=== PATIENT | female | born 1965 ===

== ENCOUNTER 2017-01-19 20:31 | Emergency (ER) | payer MEDICARE, MEDICAID ==
[2017-01-19 20:31] VITALS: BMI 21.7
[2017-01-19 21:37] VITALS: PULSE 74; RESP 16; TEMP 98.8; O2SAT 100
--- NOTE | 2017-01-19 21:45 | ED PDOC ---
Lower Extremity Pain/Injury Time Seen by Provider: 01/19/17 21:37 Chief Complaint (Nursing): Lower Extremity Problem/Injury Chief Complaint (Provider): foot pain(right) History Per: Patient History/Exam Limitations: no limitations Additional Complaint(s): 51yo F with DM in ?ED for eval of ulcer to plantar surface of right foot-pt is getting wound care by MD Esthela and states she was seen today-pt admits to pain in foot, with no drainage, fever , chills erythema to foot. admits to swelling. pt is currently on cipro abx by MD Esthela Past Medical History Reviewed: Historical Data, Nursing Documentation, Vital Signs Vital Signs: Last Vital Signs Temp 98.8 F 01/19/17 21:34 Pulse 74 01/19/17 21:34 Resp 16 01/19/17 21:34 BP 156/72 H 01/19/17 21:34 Pulse Ox 100 01/19/17 21:34 - Medical History PMH: Anemia (Iron deficiency anemia), HTN, Hypercholesterolemia Denies: Chronic Kidney Disease - Surgical History Surgical History: Endoscopy - Family History Family History: States: No Known Family Hx - Home Medications Home Medications: Ambulatory Orders Medication Instructions Recorded Hydrochlorothiazide 25 mg PO DAILY 11/02/14 Clopidogrel [Plavix] 1 tab PO DAILY 07/03/15 GlipiZIDE [Glucotrol] 1 tab PO BID 07/03/15 hydrALAZINE [hydralazine 10 mg PO BID 12/23/16 Hydrochloride] Ibuprofen [Motrin] 400 mg PO Q6 #30 tab 01/20/17 - Allergies Allergies/Adverse Reactions: Allergies Allergy/AdvReac Type Severity Reaction Status Date / Time shellfish derived Allergy Intermediate RASH Verified 01/19/17 21:33 Wells Criteria for PE - Wells Criteria for Pulmonary Embolism Clinical Signs and Symptoms of DVT: No P.E is #1 Diagnosis, or Equally Likely: No Heart Rate >100: No Immobilization at least 3 days;Surgery previous 4 weeks: No Previous, objectively diagnosed PE or DVT: No Hemoptysis: No Malignancy w/treatment within 6 months, or palliative: No Total Score: 0 Review of Systems ROS Statement: Except As Marked, All Systems Reviewed And Found Negative Constitutional: Negative for: Fever, Chills Musculoskeletal: Positive for: Foot Pain Physical Exam - Reviewed Nursing Documentation Reviewed: Yes Vital Signs Reviewed: Yes - Physical Exam Appears: Positive for: Well, Non-toxic, No Acute Distress Head Exam: Positive for: ATRAUMATIC, NORMAL INSPECTION, NORMOCEPHALIC Skin: Positive for: Normal Color, Warm, DRY Cardiovascular/Chest: Positive for: Regular Rate, Rhythm Respiratory: Positive for: CNT, Normal Breath Sounds Extremity: Positive for: Other (right foot: plantar surface-open wound noted to plantar surfae of foot- no draiange. no erythema) Neurologic/Psych: Positive for: Alert, Oriented - Laboratory Results Result Diagrams: 01/19/17 22:28 01/19/17 22:28 - ECG O2 Sat by Pulse Oximetry: 100 - Progress ED Course And Treament: podiatry consulted-will get cbc/cmp/ESR for concerns of osteomyleitits . Medical Decision Making Medical Decision Making: podiatry evaluated pt. pt with normal labs only slightly elevated ESR, however pt will continue to abx at home and motrin for pain. Disposition - Clinical Impression Clinical Impression: Foot ulcer - Patient ED Disposition Is Patient to be Admitted: No Counseled Patient/Family Regarding: Studies Performed, Diagnosis, Need For Followup, Rx Given - Disposition Disposition: Routine/Home Disposition Time: 00:13 Condition: STABLE Prescriptions: Ibuprofen [Motrin] 400 mg PO Q6 #30 tab Instructions: Diabetic Foot Care (ED)
--- NOTE | 2017-01-19 22:35 | CP.PCM.CON ---
History of Present Illness - History of Present Illness History of Present Illness: 51 year old female with PMHx including DM, HTN was seen in the ED for pain in right foot. Patient states that she saw Dr. Proctor today in office and he took off her total contact cast. She had a lot of drainage and she did not get a new TCC applied. She admits she did not have pain when she saw Dr. Proctor, but states she had pain after walking. She denies any treatment for the pain, denies taking any medication for the pain. She is currently on cipro by Dr. Proctor. She denies n/v/f/c/sob/cp. Past Patient History - Past Medical History & Family History Past Medical History?: Yes - Past Social History Smoking Status: Former Smoker - CARDIAC Hx Hypercholesterolemia: Yes Hx Hypertension: Yes - PULMONARY Hx Respiratory Disorders: No - NEUROLOGICAL Hx Neurological Disorder: No - HEENT Hx HEENT Problems: No - RENAL Hx Chronic Kidney Disease: No - ENDOCRINE/METABOLIC Hx Endocrine Disorders: Yes Hx Diabetes Mellitus Type 2: Yes - HEMATOLOGICAL/ONCOLOGICAL Hx Anemia: Yes (Iron deficiency anemia) - INTEGUMENTARY Hx Dermatological Problems: No - MUSCULOSKELETAL/RHEUMATOLOGICAL Hx Musculoskeletal Disorders: No Hx Falls: No - GASTROINTESTINAL Hx Gastrointestinal Disorders: Yes Hx Ulcer: Yes - GENITOURINARY/GYNECOLOGICAL Hx Genitourinary Disorders: Yes Hx Reproductive Disorders: Yes (MENORRHAGIA) - PSYCHIATRIC Hx Psychophysiologic Disorder: No Hx Substance Use: No - SURGICAL HISTORY Hx Surgeries: Yes Hx Section: Yes (X1) Hx Femoral-Popliteal Bypass Graft: Yes Hx Gastric Bypass Surgery: Yes Hx Hysterectomy: Yes - ANESTHESIA Hx Anesthesia: Yes Hx Anesthesia Reactions: No Hx Malignant Hyperthermia: No Meds Home Medications: Home Medication List Medication Instructions Recorded Confirmed Type Ibuprofen [Motrin] 400 mg PO Q6 #30 tab 01/20/17 Rx Allergies/Adverse Reactions: Allergies Allergy/AdvReac Type Severity Reaction Status Date / Time shellfish derived Allergy Intermediate RASH Verified 01/19/17 21:33 Physical Exam - Constitutional Appears: Well, Non-toxic, No Acute Distress - Extremities Exam Additional comments: Right lower extremity focused exam: Vasc: DP and PT pulses palpable 2/4. CFT < 4 seconds to all digits. Skin temperature warm to cool from proximal to distal Neuro:Gross sensation intact Ortho: Pain on palpation to ulceration site on the plantar aspect of right foot Derm: Open ulceration noted to the plantar aspect of the 5th metatarsal on the right foot measure approximately 0.4 cm x 0.4 cm x 0.5 cm, no malodor, no drainage noted, no probe to bone noted. Wound is surrounded by gentinviolet that was applied earlier today. No purulence noted - Neurological Exam Neurological exam: Alert, Oriented x3 - Psychiatric Exam Psychiatric exam: Normal Affect, Normal Mood Results - Vital Signs Recent Vital Signs: Last Vital Signs Temp 98.8 F 01/19/17 21:34 Pulse 74 01/19/17 21:34 Resp 16 01/19/17 21:34 BP 156/72 H 01/19/17 21:34 Pulse Ox 100 01/19/17 22:29 - Labs Result Diagrams: 01/19/17 22:28 01/19/17 22:28 Assessment & Plan - Assessment and Plan (Free Text) Assessment: 51 year old female with right plantar ulceration secondary to diabetes Plan: Patient examined and evaluated Discussed in detail with attending, Dr. Proctor Chart and vitals reviewed;afebrile CBC, ESR, BPM ordered Radiograph ordered Right foot dressed with sterile gauze, dsd Motrin per ED PA Patient to follow up with Dr. Proctor wound care center
[2017-01-19 22:37] LABS: HEMATOCRIT 31.5 % (34.0-47.0); MEAN CELL VOLUME 83.1 fl (81.0-99.0); MEAN CORPUSCULAR HEMOGLOBIN 26.5 pg (27.0-31.0); MEAN CORPUSCULAR HGB CONC 31.9 g/dL (33.0-37.0); MEAN PLATELET VOLUME 10.3 fl (7.2-11.7); RED CELL DISTRIBUTION WIDTH 13.8 % (11.5-14.5); WHITE BLOOD COUNT 6.7 K/uL (4.8-10.8)
[2017-01-19 22:42] LABS: CALCIUM 9.2 mg/dL (8.4-10.2); POTASSIUM 4.5 MMOL/L (3.6-5.0)
[2017-01-20 00:22] VITALS: BP 143/81
--- NOTE | 2017-01-20 14:02 | RAD ---
PROCEDURE: Right Foot Radiographs. HISTORY: ulcer to plantar foot COMPARISON: Comparison is made to the previous study dated 04/22/2017 FINDINGS: BONES: There is a new small focal lucency at the proximal portion of the 5th metatarsal bone. The possibility of osteomyelitis cannot be excluded. JOINTS: Severe degenerative arthritic changes are seen. Mild deformity in the proximal portion of the for is noted. SOFT TISSUES: Focal lucencies seen at the plantar aspect of the midfoot OTHER FINDINGS: None. IMPRESSION: New small focal lucency at the proximal portion of the 5th metatarsal bone. The possibility of osteomyelitis should be excluded. Soft tissue pneumatosis at the plantar aspect of the midfoot.
== END 2017-01-20 00:21 | disposition home or self-care (01) ==
LOC: H.ER 20:31
DX: E11.621 Type 2 diabetes mellitus with foot ulcer (principal); E78.00 Pure hypercholesterolemia, unspecified; I10 Essential (primary) hypertension

== ENCOUNTER 2017-09-26 16:03 | Emergency (ER) | payer MEDICARE, MEDICAID ==
[2017-09-26 16:03] VITALS: BMI 24.3
[2017-09-26 16:11] VITALS: BP 177/56; PULSE 67; RESP 20; TEMP 98.2; O2SAT 98
[2017-09-26] MEDS ORDERED: Povidone Iodine Oint 10% Foilpak UD ONE (16:57)
[2017-09-26 17:20] LABS: BASO # 0.1 K/uL (0.0-0.2); BASO % 0.8 % (0.0-2.0); EOS # 0.2 K/uL (0.0-0.7); EOS % 1.9 % (0.0-4.0); HEMOGLOBIN 10.5 g/dL (12.0-16.0); LYMPH # 1.8 K/uL (1.0-4.3); LYMPH % 19.2 % (20.0-40.0); MEAN CELL VOLUME 81.8 fl (81.0-99.0); MEAN CORPUSCULAR HEMOGLOBIN 26.2 pg (27.0-31.0); MEAN PLATELET VOLUME 9.8 fl (7.2-11.7); MONO # 0.5 K/uL (0.0-0.8); MONO % 5.4 % (0.0-10.0); NEUT # 6.8 K/uL (1.8-7.0); NEUT % 72.7 % (50.0-75.0); NRBC % 0.1 % (0.0-0.0); RBC 4.02 Mil/uL (3.80-5.20); RED CELL DISTRIBUTION WIDTH 13.8 % (11.5-14.5); WHITE BLOOD COUNT 9.4 K/uL (4.8-10.8)
--- NOTE | 2017-09-26 18:02 | ED PDOC ---
Lower Extremity Pain/Injury Time Seen by Provider: 09/26/17 16:36 Chief Complaint (Nursing): Lower Extremity Problem/Injury Additional Complaint(s): Pt presents to ED for bleeding from R foot. Denies fever, trauma, pustular drainage. Pt also c/o R sided neck pain that started after waking up three days ago, relieved with Tylenol and Motrin at home, no trauma, no redness, no swelling, no fever, no arm pain, no paresthesias, no weakness. Past Medical History Reviewed: Nursing Documentation, Vital Signs Vital Signs: Last Vital Signs Temp 98.2 F 09/26/17 16:07 Pulse 67 09/26/17 16:07 Resp 20 09/26/17 16:07 BP 177/56 H 09/26/17 16:07 Pulse Ox 98 09/26/17 16:07 - Medical History PMH: Anemia (Iron deficiency anemia), Diabetes, HTN, Hypercholesterolemia Denies: Chronic Kidney Disease - Surgical History Surgical History: Endoscopy - Family History Family History: States: Unknown Family Hx - Home Medications Home Medications: Ambulatory Orders Medication Instructions Recorded Clopidogrel [Plavix] 75 mg PO DAILY #30 tab 01/30/17 GlipiZIDE [Glucotrol] 10 mg PO BIDAC tab 01/30/17 Sulfamethoxazole/Trimethoprim 1 tab PO Q12 #42 tab 01/30/17 [Bactrim DS 800 mg-160 mg] Vancomycin 1gm in NS 250ml 1 gm IVPB Q12 #84 bag 01/30/17 [Vancomycin 1gm] hydrALAZINE [Apresoline] 10 mg PO BID tab 01/30/17 hydroCHLOROthiazide [Hydrodiuril] 25 mg PO DAILY tab 01/30/17 Metoprolol Succinate [Toprol XL] 25 mg PO DAILY #30 tab 07/29/17 - Allergies Allergies/Adverse Reactions: Allergies Allergy/AdvReac Type Severity Reaction Status Date / Time shellfish derived Allergy Intermediate RASH Verified 07/29/17 13:32 Review of Systems Constitutional: Negative for: Fever Cardiovascular: Negative for: Chest Pain Respiratory: Negative for: Cough Musculoskeletal: Positive for: Neck Pain, Shoulder Pain Skin: Positive for: Other (Bleeding). Negative for: Rash, Lesions Physical Exam - Reviewed Nursing Documentation Reviewed: Yes Vital Signs Reviewed: Yes - Physical Exam Appears: Positive for: Well, No Acute Distress Head Exam: Positive for: ATRAUMATIC, NORMAL INSPECTION Skin: Positive for: Normal Color, Warm, Dry Eye Exam: Positive for: Normal appearance, EOMI, PERRL Neck: Positive for: Normal, Supple, Pain On Movement Of Neck (TTP along R SCM muscle, FROM, no erythema, no edema, no induration, no lesions, no crepitus). Negative for: Decreased ROM, Limited ROM Cardiovascular/Chest: Positive for: Regular Rate, Rhythm Respiratory: Positive for: Normal Breath Sounds Back: Positive for: Other (FOOT: Deferred) Neurologic/Psych: Positive for: Alert, Oriented - Laboratory Results Result Diagrams: 09/26/17 17:09 - ECG O2 Sat by Pulse Oximetry: 98 Medical Decision Making Medical Decision Makin yo with chronic R foot wound and musculoskeletal pain. - Podiatry resident - CBC Disposition - Clinical Impression Clinical Impression: Chronic wound of extremity, Musculoskeletal pain - Disposition Referrals: Shaji Proctor DPM [Doctor Pod[facility]] - Disposition: Routine/Home Disposition Time: 18:01 Condition: STABLE Additional Instructions: CONTINUE MOTRIN OR TYLENOL NEEDED FOR PAIN. AUGMENTIN CALLED INTO YOUR PHARMACY, Instructions: Chronic Wound Care (ED), Musculoskeletal Pain (ED) Forms: [employer] (Jamaican)
--- NOTE | 2017-09-26 20:07 | CP.PCM.CON ---
History of Present Illness - History of Present Illness History of Present Illness: 52 y/o female seen at bedside in ED for right foot plantar ulcer. Patient states she is a patient of Dr. Proctor in the wound care center. She states that when her visiting nurses came to change her dressing yesterday she noticed blood on her dressing. States she did not see any pus coming from the site. Denies any pain to the right foot. States she has a history of bone infection and has taken antibiotics for it in the past. Denies F/C/N/V/CP/SOB PMHx: DM, HTN Review of Systems - Review of Systems All systems: reviewed and no additional remarkable complaints except (per HPI) Past Patient History - Past Medical History & Family History Past Medical History?: Yes - Past Social History Smoking Status: Former Smoker - CARDIAC Hx Hypercholesterolemia: Yes Hx Hypertension: Yes - PULMONARY Hx Respiratory Disorders: No - NEUROLOGICAL Hx Neurological Disorder: No - HEENT Hx HEENT Problems: No - RENAL Hx Chronic Kidney Disease: No - ENDOCRINE/METABOLIC Hx Diabetes Mellitus Type 2: Yes - HEMATOLOGICAL/ONCOLOGICAL Hx Anemia: Yes (Iron deficiency anemia) - INTEGUMENTARY Hx Dermatological Problems: No - MUSCULOSKELETAL/RHEUMATOLOGICAL Hx Musculoskeletal Disorders: No Hx Falls: No - GASTROINTESTINAL Hx Gastrointestinal Disorders: Yes Hx Ulcer: Yes - GENITOURINARY/GYNECOLOGICAL Hx Genitourinary Disorders: Yes Hx Reproductive Disorders: Yes (MENORRHAGIA) - PSYCHIATRIC Hx Psychophysiologic Disorder: No Hx Substance Use: No - SURGICAL HISTORY Hx Surgeries: Yes Hx Section: Yes (X1) Hx Femoral-Popliteal Bypass Graft: Yes Hx Gastric Bypass Surgery: Yes Hx Hysterectomy: Yes - ANESTHESIA Hx Anesthesia: Yes Hx Anesthesia Reactions: No Hx Malignant Hyperthermia: No Meds Allergies/Adverse Reactions: Allergies Allergy/AdvReac Type Severity Reaction Status Date / Time shellfish derived Allergy Intermediate RASH Verified 07/29/17 13:32 Physical Exam - Constitutional Appears: Well, Non-toxic, No Acute Distress - Extremities Exam Additional comments: Right lower extremity focused exam: Vasc: DP/PT pulses palpable 2/4. Temp gradient warm to warm. CFT < 3 sec to all digits. No pedal edema noted Derm: 0.6cm x 0.5cm x 0.2cm ulceration noted to plantar lateral midfoot. Gentian kapil noted to wound periphery from previous applications. Mild fluctuance noted to wound periphery proximally - serous drainage elicited with pressure. No erythema, no cellulitis, no malodor. Blistering of skin noted distal to ulcer, remains intact and closed Neuro: Protective sensation grossly diminished Ortho: No tenderness to palpation of ulceration or plantar midfoot. Charcot neuroarthropathy deformity noted to right foot with multiple bony prominences noted to plantar midfoot - Neurological Exam Neurological exam: Alert, Oriented x3 - Psychiatric Exam Psychiatric exam: Normal Affect, Normal Mood Results - Vital Signs Recent Vital Signs: Last Vital Signs Temp 98.2 F 09/26/17 16:07 Pulse 67 09/26/17 16:07 Resp 20 09/26/17 16:07 BP 177/56 H 09/26/17 16:07 Pulse Ox 98 09/26/17 18:14 - Labs Result Diagrams: 09/26/17 17:09 Labs: Laboratory Results - last 24 hr 09/26/17 17:09 WBC 9.4 RBC 4.02 Hgb 10.5 L D Hct 32.9 L MCV 81.8 MCH 26.2 L MCHC 32.0 L RDW 13.8 Plt Count 247 MPV 9.8 Neut % (Auto) 72.7 Lymph % (Auto) 19.2 L Lander % (Auto) 5.4 Eos % (Auto) 1.9 Baso % (Auto) 0.8 Neut # 6.8 Lymph # 1.8 Lander # 0.5 Eos # 0.2 Baso # 0.1 Assessment & Plan - Assessment and Plan (Free Text) Assessment: 52 y/o female with right diabetic foot ulcer with Charcot neuroarthropathy Plan: Pt seen and evaluated in ED Discussed with attending Dr. Proctor Labs and vitals reviewed- WBC 9.4, afebrile Cleansed wound with sterile saline and dressed with betadine DSD Wound does not appear clinically infected at this time Patient instructed to continue protected weightbearing in surgical shoe and return if she notices any signs of infection such as swelling, redness or pus draining from wound Patient stable for D/C and will follow up with Dr. Proctor in the wound care center Thank you for this consult
== END 2017-09-26 19:26 | disposition home or self-care (01) ==
LOC: H.ER 16:03
DX: E11.621 Type 2 diabetes mellitus with foot ulcer (principal); D50.9 Iron deficiency anemia, unspecified; E78.00 Pure hypercholesterolemia, unspecified; I10 Essential (primary) hypertension; L97.519 Non-pressure chronic ulcer of other part of right foot with unspecified severity

== ENCOUNTER 2017-12-22 03:56 | Emergency (ER) | payer MEDICARE, MEDICAID ==
[2017-12-22 03:56] VITALS: BMI 24.3
[2017-12-22 04:31] VITALS: BP 146/69; PULSE 65; RESP 18; TEMP 98.8; O2SAT 100
--- NOTE | 2017-12-22 04:56 | ED PDOC ---
HPI: Wound Care - HPI Time Seen by Provider: 12/22/17 04:33 Chief Complaint (Nursing): Fever Chief Complaint (Provider): wound check History Per: Patient History Of Present Illness: 52 y/o female presents for evaluation of wound check to abdomen. Patient states she had abdominoplasty on 11/24/[address] Haywood (due to excess weight loss from gastric bypass 2 years ago), noted clear drainage on abdominal binder two days ago. Patient reports fever of 101F yesterday afternoon, for which she took Tylenol (last dose 23:30). Denies headache, nausea/vomiting, abdominal pain, changes in bowel movements. Patient just started on course of Ciprofloxacin by her [employer] Dr. Proctor status-post skin graft to chronic right foot ulcer; saw doctor yesterday and was told all of the cultures came back normal but antibiotics are to "prevent" infection. Denies foot pain, drainage, numbness. Past Medical History Reviewed: Historical Data, Nursing Documentation, Vital Signs Vital Signs: Last Vital Signs Temp 98.8 F 12/22/17 04:28 Pulse 65 12/22/17 04:28 Resp 18 12/22/17 04:28 BP 146/69 12/22/17 04:28 Pulse Ox 100 12/22/17 04:28 - Medical History PMH: Anemia (Iron deficiency anemia), Diabetes, HTN, Hypercholesterolemia Denies: Chronic Kidney Disease - Surgical History Surgical History: Endoscopy - Family History Family History: States: Unknown Family Hx - Immunization History Hx Tetanus Toxoid Vaccination: No Hx Influenza Vaccination: No Hx Pneumococcal Vaccination: No - Home Medications Home Medications: Ambulatory Orders Medication Instructions Recorded Clopidogrel [Plavix] 75 mg PO DAILY #30 tab 01/30/17 GlipiZIDE [Glucotrol] 10 mg PO BIDAC tab 01/30/17 hydrALAZINE [Apresoline] 10 mg PO BID tab 01/30/17 hydroCHLOROthiazide [Hydrodiuril] 25 mg PO DAILY tab 01/30/17 Metoprolol Succinate [Toprol XL] 25 mg PO DAILY #30 tab 07/29/17 Cephalexin [Keflex] 500 mg PO Q6 #27 capsule 12/22/17 - Allergies Allergies/Adverse Reactions: Allergies Allergy/AdvReac Type Severity Reaction Status Date / Time shellfish derived Allergy Intermediate RASH Verified 12/22/17 04:26 Review of Systems ROS Statement: Except As Marked, All Systems Reviewed And Found Negative Skin: Positive for: Lesions Physical Exam - Reviewed Nursing Documentation Reviewed: Yes Vital Signs Reviewed: Yes - Physical Exam Appears: Positive for: Well, Non-toxic, No Acute Distress Head Exam: Positive for: ATRAUMATIC, NORMAL INSPECTION, NORMOCEPHALIC Skin: Positive for: Normal Color Eye Exam: Positive for: Normal appearance ENT: Positive for: Normal ENT Inspection Cardiovascular/Chest: Positive for: Regular Rate, Rhythm Respiratory: Positive for: Normal Breath Sounds Gastrointestinal/Abdominal: Positive for: Normal Exam, Bowel Sounds, Soft, Other (multiple healing surgical incision sites noted to abdomen: horizontal incision site inferior to breasts, vertical incision site midline abdomen, periumbilical incision site, horizontal incision site suprapubic area. small areas of wound dehiscence noted to the suprapubic incision site, right side. No active drainage, odor, surrounding erythema or tenderness noted.). Negative for: Tenderness Back: Positive for: Normal Inspection Extremity: Positive for: Normal ROM Neurologic/Psych: Positive for: Alert, Oriented - Laboratory Results Result Diagrams: 12/22/17 05:06 12/22/17 05:06 - ECG O2 Sat by Pulse Oximetry: 100 - Progress ED Course And Treament: labs, wound culture juice given for 57 glucose. Patient educated on findings, discharged with rx Keflex (first dose given in ED) Telfa applied to areas of dehiscence. Advised to call Plastic Surgeon this am to arrange follow up. Return precautions given. Disposition - Clinical Impression Clinical Impression: Wound dehiscence - Patient ED Disposition Is Patient to be Admitted: No Counseled Patient/Family Regarding: Studies Performed, Diagnosis, Need For Followup, Rx Given - Disposition Referrals: Uche Miramontes MD [Primary Care Provider] - Disposition: Routine/Home Disposition Time: 05:30 Condition: GOOD Prescriptions: Cephalexin [Keflex] 500 mg PO Q6 #27 capsule Instructions: Wound Dehiscence Forms: [employer] (Liberian) Print Language: HEBREW
[2017-12-22 05:18] LABS: BASO # 0.1 K/uL (0.0-0.2); BASO % 0.8 % (0.0-2.0); EOS # 0.1 K/uL (0.0-0.7); EOS % 1.5 % (0.0-4.0); HEMOGLOBIN 9.7 g/dL (12.0-16.0); LYMPH # 2.5 K/uL (1.0-4.3); LYMPH % 26.8 % (20.0-40.0); MEAN CELL VOLUME 82.9 fl (81.0-99.0); MEAN CORPUSCULAR HEMOGLOBIN 26.8 pg (27.0-31.0); MEAN CORPUSCULAR HGB CONC 32.3 g/dL (33.0-37.0); MEAN PLATELET VOLUME 10.3 fl (7.2-11.7); MONO # 0.8 K/uL (0.0-0.8); MONO % 8.3 % (0.0-10.0); NEUT # 5.8 K/uL (1.8-7.0); NEUT % 62.6 % (50.0-75.0); RBC 3.63 Mil/uL (3.80-5.20); RED CELL DISTRIBUTION WIDTH 13.7 % (11.5-14.5); WHITE BLOOD COUNT 9.3 K/uL (4.8-10.8)
[2017-12-22 05:24] LABS: ALBUMIN 3.5 g/dL (3.5-5.0); CALCIUM 8.8 mg/dL (8.4-10.2)
== END 2017-12-22 06:08 | disposition home or self-care (01) ==
LOC: H.ER 03:56
DX: T81.31XA Disruption of external operation (surgical) wound, not elsewhere classified, initial encounter (principal)

== ENCOUNTER 2018-04-11 11:42 | Inpatient (IN) | payer MEDICARE, MEDICAID ==
[2018-04-11 11:43] VITALS: BMI 25.0
--- NOTE | 2018-04-11 12:29 | ED PDOC ---
Lower Extremity Pain/Injury Time Seen by Provider: 04/11/18 12:07 Chief Complaint (Nursing): Abnormal Skin Integrity Chief Complaint (Provider): Foot pain History Per: Patient Additional Complaint(s): Patient is a 52 yo female, PMH of DM and HTN, presents to ED with complaints of two blisters to right foot, worsening over the last 3 days. Pt is followed by podiatry, Dr. Proctor, who advised ED visit for further evaluation and management. complaints of generalized chills, no fever. Past Medical History Reviewed: Nursing Documentation, Vital Signs Vital Signs: Last Vital Signs Temp 99.1 F 04/11/18 11:53 Pulse 63 04/11/18 11:53 Resp 16 04/11/18 11:53 BP 152/75 H 04/11/18 11:53 Pulse Ox 100 04/11/18 11:53 - Medical History PMH: Anemia (Iron deficiency anemia), Diabetes, HTN, Hypercholesterolemia Denies: Chronic Kidney Disease - Surgical History Surgical History: Endoscopy - Family History Family History: States: Unknown Family Hx - Living Arrangements Living Arrangements: With Family - Social History Current smoker - smoking cessation education provided: No Alcohol: None Drugs: Denies - Immunization History Hx Tetanus Toxoid Vaccination: No Hx Influenza Vaccination: No Hx Pneumococcal Vaccination: No - Home Medications Home Medications: Ambulatory Orders Medication Instructions Recorded Clopidogrel [Plavix] 75 mg PO DAILY #30 tab 01/30/17 GlipiZIDE [Glucotrol] 10 mg PO BIDAC tab 01/30/17 hydrALAZINE [Apresoline] 10 mg PO BID tab 01/30/17 hydroCHLOROthiazide [Hydrodiuril] 25 mg PO DAILY tab 01/30/17 Metoprolol Succinate XL [Toprol XL] 25 mg PO DAILY #30 tab 07/29/17 - Allergies Allergies/Adverse Reactions: Allergies Allergy/AdvReac Type Severity Reaction Status Date / Time shellfish derived Allergy Intermediate RASH Verified 12/22/17 04:26 Review of Systems ROS Statement: Except As Marked, All Systems Reviewed And Found Negative Musculoskeletal: Positive for: Foot Pain Physical Exam - Reviewed Nursing Documentation Reviewed: Yes Vital Signs Reviewed: Yes - Physical Exam Appears: Positive for: Well, Non-toxic, No Acute Distress Head Exam: Positive for: ATRAUMATIC, NORMAL INSPECTION, NORMOCEPHALIC Skin: Positive for: Normal Color, Warm, DRY Eye Exam: Positive for: EOMI, Normal appearance, PERRL ENT: Positive for: Normal ENT Inspection Neck: Positive for: Normal, Painless ROM Cardiovascular/Chest: Positive for: Regular Rate, Rhythm Respiratory: Positive for: CNT, Normal Breath Sounds Gastrointestinal/Abdominal: Positive for: Normal Exam, Soft Back: Positive for: Normal Inspection Extremity: Positive for: Other (deferred to podiatry) Neurologic/Psych: Positive for: Alert, Oriented - Laboratory Results Result Diagrams: 04/11/18 12:55 04/11/18 12:55 - ECG O2 Sat by Pulse Oximetry: 100 Medical Decision Making Medical Decision Making: IV access established and diagnostics ordered. Podiatry at bedside for evaluation. see notes. Dr. Proctor requesting admission at this time, as per resident. FP made aware and also presented to bedside for evaluation. Pt remains aferbile throughout stay, repeat temp in ED 98.9 F. WBC 10.6. Disposition - Clinical Impression Clinical Impression: Diabetic foot ulcer - Patient ED Disposition Is Patient to be Admitted: Yes - Disposition Disposition Time: 15:21 Condition: STABLE Forms: [email or web address] (Sierra Leonean)
--- NOTE | 2018-04-11 12:29 | CP.PCM.CON ---
History of Present Illness - History of Present Illness History of Present Illness: Podiatry Consult Note - Dr. Proctor 52 year old female patient PMHx PAD, DM, iron deficiency anemia, HTN, hypercholesterolemia, charcot arthropathy, hx of OM seen and evaluated in ED c/ o pain in right foot. Patient is well known to podiatry service. Patient states she has had an ulcer on the bottom of her right foot which was healing well up to 2 weeks ago; after that point noticed some redness so was placed on abx ( Augmentin then Ciprofloxacin). Patient reports pain and redness persisted despite being on antibiotics; states she had a fever yesterday so was told to present to [facility] ED by her electrician telephone Dr. Proctor for further evaluation. At present, patient reports pain at site of ulcer and lateral side of foot. States she last saw Dr. Proctor on and since then pain has worsened significantly. Admits to fever, chills, and nausea overnight. Denies chest pain , shortness of breath, palptations, diarrhea, abd pain, dizziness, headache. PMHx: PAD, DM, iron deficiency anemia, HTN, hypercholesterolemia, charcot arthropathy, hx OM PSH: multiple foot surgeries, LE stents, bariatric sx, , hysterectomy FH: father with prostate ca and had MO at age 64; mother of multiple myeloma 14 years ago; both parents had DM and HTN; no hx of CVA SH: social ETOH use, former smoker (3-4 cigarettes/day x20 years, quit 15 years ago), denies illicit drug use All: shellfish Review of Systems - Review of Systems All systems: reviewed and no additional remarkable complaints except (as per HPI ) Past Patient History - Past Medical History & Family History Past Medical History?: Yes - Past Social History Smoking Status: Former Smoker - CARDIAC Hx Cardiac Disorders: Yes Hx Hypercholesterolemia: Yes Hx Hypertension: Yes Hx Peripheral Vascular Disease: Yes (LEFT LEG BYPASS) Other/Comment: hx dvt 5 years ago - PULMONARY Hx Respiratory Disorders: No - NEUROLOGICAL Hx Neurological Disorder: No - HEENT Hx HEENT Problems: No - RENAL Hx Chronic Kidney Disease: No Other/Comment: "kidney problem" SLIGHTLY ELEVATED CREATININE IN PAST - ENDOCRINE/METABOLIC Hx Endocrine Disorders: Yes Hx Diabetes Mellitus Type 2: Yes - HEMATOLOGICAL/ONCOLOGICAL Hx Blood Disorders: Yes Hx Anemia: Yes (Iron deficiency anemia) Hx Blood Transfusions: Yes Hx Blood Transfusion Reaction: No - INTEGUMENTARY Hx Dermatological Problems: Yes (ULCER RIGHT FOOT) - MUSCULOSKELETAL/RHEUMATOLOGICAL Hx Musculoskeletal Disorders: Yes Hx Falls: No Other/Comment: ulcer right foot - GASTROINTESTINAL Hx Gastrointestinal Disorders: Yes Hx Ulcer: Yes - GENITOURINARY/GYNECOLOGICAL Hx Genitourinary Disorders: Yes Hx Reproductive Disorders: Yes (MENORRHAGIA) - PSYCHIATRIC Hx Psychophysiologic Disorder: No Hx Substance Use: No - SURGICAL HISTORY Hx Surgeries: Yes Hx Section: Yes (X1) Hx Femoral-Popliteal Bypass Graft: Yes Hx Gastric Bypass Surgery: Yes Hx Hysterectomy: Yes Other/Comment: Abdominoplasty, gastric bypass 3 years ago DEBRIDEMENT RIGHT FOOT ULCER 2 mos ago - ANESTHESIA Hx Anesthesia: Yes Hx Anesthesia Reactions: No Hx Malignant Hyperthermia: No Meds Allergies/Adverse Reactions: Allergies Allergy/AdvReac Type Severity Reaction Status Date / Time shellfish derived Allergy Intermediate RASH Verified 12/22/17 04:26 Physical Exam - Constitutional Appears: Well, Non-toxic, No Acute Distress - Extremities Exam Additional comments: RLE focused physical exam: Vasc: DP/PT pulses palpable 2/4. Temp gradient warm to warm, with increase in warmth noted to plantar midfoot and lateral styloid process. CFT < 3 sec to all digits. No pedal edema noted Derm: 0.3cm x 0.3cm x 1.2cm ulceration noted to plantar lateral midfoot; hyperkeratotic rim present. (-)probe to bone. Gentian kapil noted to wound periphery from previous applications. Mild fluctuance noted to wound periphery proximally - 0.5cc purulent drainage elicited with pressure. Erythema noted to styloid process. Neuro: Protective sensation grossly diminished Ortho: Pain on palpation noted to ulceration and styloid process. Charcot neuroarthropathy deformity present with multiple bony prominences to plantar midfoot. Muscle strength 5/5 for all dorsiflexors, plantarflexors, inverters, and everters. - Neurological Exam Neurological exam: Alert, Oriented x3 - Psychiatric Exam Psychiatric exam: Normal Affect, Normal Mood Results - Vital Signs Recent Vital Signs: Last Vital Signs Temp 99.1 F 04/11/18 11:53 Pulse 63 04/11/18 11:53 Resp 16 04/11/18 11:53 BP 152/75 H 04/11/18 11:53 Pulse Ox 100 04/11/18 11:53 - Labs Result Diagrams: 04/11/18 12:55 04/11/18 12:55 Assessment & Plan - Assessment and Plan (Free Text) Assessment: 52 year old female patient PMHx PAD, DM, iron deficiency anemia, HTN, hypercholesterolemia, charcot arthropathy, hx of OM with infected right foot ulceration + cellulitis Plan: Patient seen and evaluated Discussed with attending, Dr. Esthela GROVE, WBC 10.6, ESR pending Right foot XR ordered: No ST emphysema, charcot arthropathy changes in midfoot Ceretec bone scan ordered for right foot r/o OM Right foot wound culture taken Local wound care - DSD Vancomycin, Zosyn given in ED Infectious disease consulted Admit to Med/Surg - hospitalist Podiatry will continue to follow
[2018-04-11 13:09] LABS: BASO # 0.1 K/uL (0.0-0.2); BASO % 0.6 % (0.0-2.0); EOS # 0.1 K/uL (0.0-0.7); EOS % 0.7 % (0.0-4.0); HEMOGLOBIN 10.8 g/dL (12.0-16.0); LYMPH # 2.2 K/uL (1.0-4.3); LYMPH % 20.5 % (20.0-40.0); MEAN CELL VOLUME 82.3 fl (81.0-99.0); MEAN CORPUSCULAR HEMOGLOBIN 26.8 pg (27.0-31.0); MEAN CORPUSCULAR HGB CONC 32.5 g/dL (33.0-37.0); MEAN PLATELET VOLUME 10.4 fl (7.2-11.7); MONO # 0.6 K/uL (0.0-0.8); MONO % 5.4 % (0.0-10.0); NEUT # 7.7 K/uL (1.8-7.0); NEUT % 72.8 % (50.0-75.0); NRBC % 0.1 % (0.0-0.0); RBC 4.04 Mil/uL (3.80-5.20); RED CELL DISTRIBUTION WIDTH 15.6 % (11.5-14.5); WHITE BLOOD COUNT 10.6 K/uL (4.8-10.8)
[2018-04-11 13:18] LABS: ALB/GLOB RATIO 1.1 (1.0-2.1)
[2018-04-11] MEDS ORDERED: Piperacillin/Tazobact 3.375 GM in Sodium Chloride 0.9% 100 ML IVPB STA (13:31)
[2018-04-11] MEDS ORDERED: Vancomycin 1 g Inj ONE (14:08)
--- NOTE | 2018-04-11 15:21 | CP.PCM.HP ---
History of Present Illness - History of Present Illness History of Present Illness: 52 yo f with pmh of HTN, DM, PAD, Iron dificiency anemia, hypercholesterolemia, charcot arthropathy, presented to ED due to pain in right food. Pt state that she had an ulcer on her bottom of her foot which she state it was healing for since 2 weeks ago. Podiatry were on the case and have been treating her with Augmentin and ciprofloxacin last time taken 04/10. She state that pain and redness persisted despite being on abx. Pt state that she had fever nausea, and one episode of vomit yesterday, so her Licensed Pesticide Applicator Dr. Proctor advised her to present to ER for evaluation. Pt still have pain at the moment, but denies having Chest pain, SOB, abdominal pain, diarrhea, constipation, dysuria, polyuria. All: shellfish PMHx: As HPi Med: Hydralazine 25mg, Metoprolol succinate 25 Er, Hctz 25mg, Glipizide 10mg, Plavix 75mg PSH: LE Stents. bariatric, hysterectomy, foot surgeries FH: Father had Prostste ca and MO at 65 yo. Mom of MM 14 year ago. Both parents had DM and HTN. SH: Pt drink socially, smoke 5 pack a day quit 15 year ago, denies drug use. On ER Pt was not in acute distress VItals WNL except BP of 156/75 Labs were taken and reviewd Xray of food pending Foot was seen by podiatry, managed and wrapped Tx: vancomycin, Pip/tazo Pt will me admitted to tx cellulites Present on Admission - Present on Admission Any Indicators Present on Admission: Yes Review of Systems - Review of Systems All systems: reviewed and no additional remarkable complaints except - Constitutional Constitutional: As Per HPI, Fever. absent: Fatigue - EENT Eyes: As Per HPI - Cardiovascular Cardiovascular: absent: Chest Pain, Chest Pain at Rest, Dyspnea - Respiratory Respiratory: As Per HPI. absent: Cough, Dyspnea on Exertion - Gastrointestinal Gastrointestinal: As Per HPI. absent: Abdominal Pain, Diarrhea - Genitourinary Genitourinary: As Per HPI. absent: Dysuria, Flank Pain, Pyuria - Musculoskeletal Musculoskeletal: As Per HPI. absent: Back Pain, Myalgias, Neck Pain - Neurological Neurological: As Per HPI - Psychiatric Psychiatric: As Per HPI. absent: Anxiety, Auditory Hallucinations, Behavioral Changes, Change in Appetite, Change in Libido, Confusion, Depression - Endocrine Endocrine: As Per HPI. absent: Change in Libido, Deepening of Voice, Flushing Past Patient History - Past Medical History & Family History Past Medical History?: Yes - Past Social History Alcohol: None Drugs: Denies - CARDIAC Hx Hypercholesterolemia: Yes Hx Hypertension: Yes - PULMONARY Hx Respiratory Disorders: No - NEUROLOGICAL Hx Neurological Disorder: No - HEENT Hx HEENT Problems: No - RENAL Hx Chronic Kidney Disease: No - ENDOCRINE/METABOLIC Hx Endocrine Disorders: Yes Hx Diabetes Mellitus Type 2: Yes - HEMATOLOGICAL/ONCOLOGICAL Hx Anemia: Yes (Iron deficiency anemia) - INTEGUMENTARY Hx Dermatological Problems: Yes (ULCER RIGHT FOOT) - MUSCULOSKELETAL/RHEUMATOLOGICAL Hx Musculoskeletal Disorders: Yes Hx Falls: No Other/Comment: ulcer right foot - GASTROINTESTINAL Hx Gastrointestinal Disorders: Yes Hx Ulcer: Yes - GENITOURINARY/GYNECOLOGICAL Hx Genitourinary Disorders: Yes Hx Reproductive Disorders: Yes (MENORRHAGIA) - PSYCHIATRIC Hx Psychophysiologic Disorder: No Hx Substance Use: No - SURGICAL HISTORY Hx Surgeries: Yes Hx Section: Yes (X1) Hx Femoral-Popliteal Bypass Graft: Yes Hx Gastric Bypass Surgery: Yes Hx Hysterectomy: Yes Other/Comment: Abdominoplasty, gastric bypass 3 years ago DEBRIDEMENT RIGHT FOOT ULCER 2 mos ago - ANESTHESIA Hx Anesthesia: Yes Hx Anesthesia Reactions: No Hx Malignant Hyperthermia: No Meds Allergies/Adverse Reactions: Allergies Allergy/AdvReac Type Severity Reaction Status Date / Time shellfish derived Allergy Intermediate RASH Verified 12/22/17 04:26 Physical Exam - Constitutional Appears: Well, Non-toxic, No Acute Distress - Head Exam Head Exam: ATRAUMATIC, NORMAL INSPECTION, NORMOCEPHALIC - Eye Exam Eye Exam: EOMI, Normal appearance, PERRL Pupil Exam: PERRL - ENT Exam ENT Exam: Mucous Membranes Moist, Normal Exam - Neck Exam Neck exam: Positive for: Normal Inspection - Respiratory Exam Respiratory Exam: Clear to Auscultation Bilateral, NORMAL BREATHING PATTERN - Cardiovascular Exam Cardiovascular Exam: REGULAR RHYTHM, +S1, +S2 - GI/Abdominal Exam GI & Abdominal Exam: Normal Bowel Sounds, Soft. absent: Tenderness - Extremities Exam Extremities exam: Positive for: normal inspection Additional comments: Ulcer noted on Right leg - Back Exam Back exam: NORMAL INSPECTION. absent: CVA tenderness (L), CVA tenderness (R) - Neurological Exam Neurological exam: Alert, Normal Gait, Oriented x3 - Psychiatric Exam Psychiatric exam: Normal Affect, Normal Mood - Skin Skin Exam: Dry, Intact, Normal Color, Warm Results - Vital Signs Recent Vital Signs: Last Vital Signs Temp 99.1 F 04/11/18 11:53 Pulse 63 04/11/18 11:53 Resp 16 04/11/18 11:53 BP 152/75 H 04/11/18 11:53 Pulse Ox 100 04/11/18 15:20 - Labs Result Diagrams: 04/12/18 05:00 04/12/18 05:00 Labs: Laboratory Results - last 24 hr 04/11/18 04/11/18 12:55 12:55 WBC 10.6 RBC 4.04 Hgb 10.8 L Hct 33.3 L MCV 82.3 MCH 26.8 L MCHC 32.5 L RDW 15.6 H Plt Count 186 MPV 10.4 Neut % (Auto) 72.8 Lymph % (Auto) 20.5 [place] % (Auto) 5.4 Eos % (Auto) 0.7 Baso % (Auto) 0.6 Neut # (Auto) 7.7 H Lymph # (Auto) 2.2 [place] # (Auto) 0.6 Eos # (Auto) 0.1 Baso # (Auto) 0.1 ESR 55 H Sodium 140 Potassium 4.9 Chloride 109 H Carbon Dioxide 18 L Anion Gap 18 BUN 27 H Creatinine 1.3 H Est GFR ( Amer) 52 Est GFR (Non-Af Amer) 43 Random Glucose 131 H Calcium 9.0 Total Bilirubin 0.4 AST 20 ALT 27 Alkaline Phosphatase 117 Total Protein 7.6 Albumin 4.0 Globulin 3.7 Albumin/Globulin Ratio 1.1 Assessment & Plan - Assessment and Plan (Free Text) Assessment: 52 yo f with pmh of HTN, DM, PAD, Iron dificiency anemia, hypercholesterolemia, charcot arthropathy, presented to ED due to pain in right food. Admitted to Treat cellulites Assessment and Plan Cellulites Wound culture Xray of foot ID consult Podiatry consult Start Meropenem 500 mg day 1 Vanco day 1 Percocet for sever pain Tylenol if moderate pain F/U CBC with differential F/u blood culture F/U wound culture Monitor vitals HTN Controlled Hydralazine 25mg Metoprolol succinate 25 Er Hctz 25mg Plavix 75mg DM Controlled Glipizide 10mg, Start on insulin coverage scale hypoglycemic protocol F/U HA1c level Iron Deficiency anemia Controlled DVT prophilaxis Levonox
[2018-04-11] MEDS ORDERED: Dextrose 50% SYRINGE Inj (50 ml) IV PRN (15:23)
[2018-04-11] MEDS ORDERED: Glucagon Recombinant 1 mg Inj IM PRN (15:23)
--- NOTE | 2018-04-11 15:28 | CP.PCM.CON ---
History of Present Illness - History of Present Illness History of Present Illness: Patient is a 52 year old female with a PMHx of DM, who presents to the ER with a right foot ulcer. Patient has long hx of diabetic ulcers and PVD and was treated for this in the past She was recently treated with augmentin and Cipro without much improvement admitted for possible OM which may need debridement complicating factor is anticipated reocation of patient to [place] PMHx: PAD, DM, iron deficiency anemia, HTN, hypercholesterolemia, charcot arthropathy, hx OM PSH: multiple foot surgeries, LE stents, bariatric sx, , hysterectomy FH: father with prostate ca and had NC at age 64; mother of multiple myeloma 14 years ago; both parents had DM and HTN; no hx of CVA SH: social ETOH use, former smoker (3-4 cigarettes/day x20 years, quit 15 years ago), denies illicit drug use All: shellfish - Medical History PMH: Anemia (Iron deficiency anemia), HTN, Hypercholesterolemia, DM Denies: Chronic Kidney Disease Surgical History: Endoscopy - [facility] Procedures Review of Systems - Constitutional Constitutional: As Per HPI - EENT Eyes: absent: As Per HPI, Blind Spots, Blurred Vision, Change in Vision, Decreased Night Vision, Diplopia, Discharge, Dry Eye, Exophthalmos, Floaters, Irritation, Itchy Eyes, Loss of Peripheral Vision, Pain, Photophobia, Requires Corrective Lenses, Sees Flashes, Spots in Vision, Tunnel Vision, Other Visual Disturbances, Loss of Vision, Other Ears: absent: As Per HPI, Decreased Hearing, Ear Discharge, Ear Pain, Tinnitus, Abnormal Hearing, Disequilibrium, Dizziness, Other Nose/Mouth/Throat: absent: As Per HPI, Epistaxis, Nasal Congestion, Nasal Discharge, Nasal Obstruction, Nasal Trauma, Nose Pain, Post Nasal Drip, Sinus Pain, Sinus Pressure, Bleeding Gums, Change in Voice, Dental Pain, Dry Mouth, Dysphagia, Halitosis, Hoarsness, Lip Swelling, Mouth Lesions, Mouth Pain, Odynophagia, Sore Throat, Throat Swelling, Tongue Swelling, Facial Pain, Neck Pain, Neck Mass, Other - Breasts Breasts: absent: As Per HPI, Change in Shape, Mass, Pain, Nipple Discharge, Nipple Inversion, Skin Changes, Swelling, Other - Cardiovascular Cardiovascular: absent: As Per HPI, Acrocyanosis, Chest Pain, Chest Pain at Rest , Chest Pain with Activity, Claudication, Diaphoresis, Dyspnea, Dyspnea on Exertion, Edema, Irregular Heart Rhythm, Pain Radiating to Arm/Neck/Jaw, Leg Edema, Leg Ulcers, Lightheadedness, Orthopnea, Palpitations, Paroxysmal Nocturnal Dyspnea, Pedal Edema, Radiating Pain, Rapid Heart Rate, Slow Heart Rate, Syncope, Other - Respiratory Respiratory: absent: As Per HPI, Cough, Dyspnea, Hemoptysis, Dyspnea on Exertion , Wheezing, Snoring, Stridor, Pain on Inspiration, Chest Congestion, Excessive Mucous Production, Change in Mucous Color, Pain with Coughing, Other - Gastrointestinal Gastrointestinal: absent: As Per HPI, Abdominal Pain, Belching, Bloating, Change in Bowel Habits, Change in Stool Character, Coffee Ground Emesis, Constipation, Cramping, Diarrhea, Dyspepsia, Dysphagia, Early Satiety, Excessive Flatus, Fecal Incontinence, Heartburn, Hematemesis, Hematochezia, Loose Stools, Melena, Nausea, Odynophagia, Temesmus, Vomiting, Other - Genitourinary Genitourinary: absent: As Per HPI, Change in Urinary Stream, Difficulty Urinating, Dysuria, Flank Pain, Hematuria, Pyuria, Nocturia, Urinary Incontinence, Urinary Frequency, Urinary Hesitance, Urinary Urgency, Voiding Freq/Small Amts, Freq UTI, Hx Renal/Bladder Calculi, Hx /Renal Surgery, Bladder Distension, Other - Reproductive: Female Reproductive:Female: absent: As Per HPI, Amenorrhea, Amenorrhea/ Control, Currently Menstual, Cycle <21 Days, Cycle >35 Days, Cycle Variable, Menses 1-7 Days, Menses >/= 8 Days, Menses Variable, Cycle > 4 Weeks Between, No Menses for 6 Months, Heavy Menses, Light Menses, Normal Menses, Spotting Between Cycles , S/P Hysterectomy, Menopausal, Post Menopausal, Premenarche, Abnormal Vaginal Bleeding, Dysmenorrhea, Dyspareunia, Genital Lesions, Genital Pruritis, Pelvic Pain, Prolapse Symptoms, Sexual Dysfunction, Vaginal Discharge, Vaginal Dryness , Vaginal Odor, Vaginal Pruritis, Other - Menstruation Menstruation: absent: As Per HPI, Amenorrhea, Amenorrhea/ Control, Currently Menstual, Cycle <21 Days, Cycle >35 Days, Cycle Variable, Menses 1-7 Days, Menses >/= 8 Days, Menses Variable, Cycle > 4 Weeks Between, No Menses for 6 Months, Heavy Menses, Light Menses, Normal Menses, Spotting Between Cycles , S/P Hysterectomy, Menopausal, Post Menopausal, Premenarche, Abnormal Vaginal Bleeding, Dysmenorrhea, Other - Musculoskeletal Musculoskeletal: As Per HPI - Integumentary Integumentary: As Per HPI, Skin Pain, Wounds - Neurological Neurological: As Per HPI, Tingling - Psychiatric Psychiatric: absent: As Per HPI, Abnormal Sleep Pattern, Anhedonia, Anxiety, Auditory Hallucinations, Behavioral Changes, Change in Appetite, Change in Libido, Confusion, Depression, Difficulty Concentrating, Hallucinations, Homicidal Ideation, Hopelessness, Irritability, Memory Loss, Mood Swings, Panic Attacks, Paranoia, Suicidal Ideation, Visual Hallucinations, Tactile Hallucinations, Other - Endocrine Endocrine: As Per HPI - Hematologic/Lymphatic Hematologic: absent: As Per HPI, Easy Bleeding, Easy Bruising, Lymphadenopathy, Other Past Patient History - Past Medical History & Family History Past Medical History?: Yes - Past Social History Alcohol: None Drugs: Denies - CARDIAC Hx Hypercholesterolemia: Yes Hx Hypertension: Yes - PULMONARY Hx Respiratory Disorders: No - NEUROLOGICAL Hx Neurological Disorder: No - HEENT Hx HEENT Problems: No - RENAL Hx Chronic Kidney Disease: No - ENDOCRINE/METABOLIC Hx Endocrine Disorders: Yes Hx Diabetes Mellitus Type 2: Yes - HEMATOLOGICAL/ONCOLOGICAL Hx Anemia: Yes (Iron deficiency anemia) - INTEGUMENTARY Hx Dermatological Problems: Yes (ULCER RIGHT FOOT) - MUSCULOSKELETAL/RHEUMATOLOGICAL Hx Musculoskeletal Disorders: Yes Hx Falls: No Other/Comment: ulcer right foot - GASTROINTESTINAL Hx Gastrointestinal Disorders: Yes Hx Ulcer: Yes - GENITOURINARY/GYNECOLOGICAL Hx Genitourinary Disorders: Yes Hx Reproductive Disorders: Yes (MENORRHAGIA) - PSYCHIATRIC Hx Psychophysiologic Disorder: No Hx Substance Use: No - SURGICAL HISTORY Hx Surgeries: Yes Hx Section: Yes (X1) Hx Femoral-Popliteal Bypass Graft: Yes Hx Gastric Bypass Surgery: Yes Hx Hysterectomy: Yes Other/Comment: Abdominoplasty, gastric bypass 3 years ago DEBRIDEMENT RIGHT FOOT ULCER 2 mos ago - ANESTHESIA Hx Anesthesia: Yes Hx Anesthesia Reactions: No Hx Malignant Hyperthermia: No Meds Allergies/Adverse Reactions: Allergies Allergy/AdvReac Type Severity Reaction Status Date / Time shellfish derived Allergy Intermediate RASH Verified 04/03/18 04:26 - Medications Medications: Current Medications Acetaminophen (Tylenol 325mg Tab) 650 mg PO Q6 PRN PRN Reason: Pain, moderate (4-7) Dextrose (Dextrose 50% Inj) 0 ml IV STAT PRN; Protocol PRN Reason: Hypoglycemia Protocol Dextrose (Glutose 15) 0 gm PO ONCE PRN; Protocol PRN Reason: Hypoglycemia Protocol Enoxaparin Sodium (Lovenox) 40 mg SC DAILY CECE PRN Reason: Protocol Glucagon (Glucagen Diagnostic Kit) 0 mg IM STAT PRN; Protocol PRN Reason: Hypoglycemia Protocol Insulin Human Lispro (Humalog) 0 units SC ACHS CECE PRN Reason: Protocol Physical Exam - Constitutional Appears: No Acute Distress, Chronically Ill - Head Exam Head Exam: ATRAUMATIC, NORMOCEPHALIC - Eye Exam Eye Exam: absent: Scleral icterus - ENT Exam ENT Exam: Mucous Membranes Dry, Normal External Ear Exam - Neck Exam Neck exam: Negative for: Lymphadenopathy - Respiratory Exam Respiratory Exam: Decreased Breath Sounds, Rhonchi - Cardiovascular Exam Cardiovascular Exam: REGULAR RHYTHM, +S1, +S2 - GI/Abdominal Exam GI & Abdominal Exam: Diminished Bowel Sounds, Distended, Soft. absent: Guarding , Rebound, Rigid, Tenderness - Rectal Exam Rectal Exam: Deferred - Exam Exam: NORMAL INSPECTION - Extremities Exam Extremities exam: Positive for: pedal edema, pedal pulses present. Negative for : calf tenderness Additional comments: Vasc: DP/PT pulses palpable 2/4. Temp gradient warm to warm, with increase in warmth noted to plantar midfoot and lateral styloid process. CFT < 3 sec to all digits. No pedal edema noted Derm: 0.3cm x 0.3cm x 1.2cm ulceration noted to plantar lateral midfoot; hyperkeratotic rim present. (-)probe to bone. Gentian kapil noted to wound periphery from previous applications. Mild fluctuance noted to wound periphery proximally - 0.5cc purulent drainage elicited with pressure. Erythema noted to styloid process. Neuro: Protective sensation grossly diminished Ortho: Pain on palpation noted to ulceration and styloid process. Charcot neuroarthropathy deformity present with multiple bony prominences to plantar midfoot. Muscle strength 5/5 for all dorsiflexors, plantarflexors, inverters, and everters. - Back Exam Back exam: absent: CVA tenderness (L), CVA tenderness (R), paraspinal tenderness - Neurological Exam Neurological exam: Alert, CN II-XII Intact, Oriented x3, Reflexes Normal - Psychiatric Exam Psychiatric exam: Normal Mood - Skin Skin Exam: Dry, Intact Results - Vital Signs Recent Vital Signs: Last Vital Signs Temp 99.1 F 04/11/18 11:53 Pulse 63 04/11/18 11:53 Resp 16 04/11/18 11:53 BP 152/75 H 04/11/18 11:53 Pulse Ox 100 04/11/18 15:21 - Labs Result Diagrams: 04/11/18 12:55 04/11/18 12:55 Labs: Laboratory Results - last 24 hr 04/11/18 04/11/18 12:55 12:55 WBC 10.6 RBC 4.04 Hgb 10.8 L Hct 33.3 L MCV 82.3 MCH 26.8 L MCHC 32.5 L RDW 15.6 H Plt Count 186 MPV 10.4 Neut % (Auto) 72.8 Lymph % (Auto) 20.5 [place] % (Auto) 5.4 Eos % (Auto) 0.7 Baso % (Auto) 0.6 Neut # (Auto) 7.7 H Lymph # (Auto) 2.2 [place] # (Auto) 0.6 Eos # (Auto) 0.1 Baso # (Auto) 0.1 ESR 55 H Sodium 140 Potassium 4.9 Chloride 109 H Carbon Dioxide 18 L Anion Gap 18 BUN 27 H Creatinine 1.3 H Est GFR ( Amer) 52 Est GFR (Non-Af Amer) 43 Random Glucose 131 H Calcium 9.0 Total Bilirubin 0.4 AST 20 ALT 27 Alkaline Phosphatase 117 Total Protein 7.6 Albumin 4.0 Globulin 3.7 Albumin/Globulin Ratio 1.1 Assessment & Plan - Assessment and Plan (Free Text) Assessment: diabetic foot ulcer- failed out pt rx cultures sent need MRI/ Ceretec scan for possiblle OR debridement empiric IV antibiotics
[2018-04-11] MEDS ORDERED: Meropenem 1 GM in Sodium Chloride 0.9% 100 ML IVPB SCH (17:00)
[2018-04-11] MEDS: Insulin Lispro (humaLOG) 100 Units/ml Inj SC SCH ×2 (17:04→22:30)
[2018-04-11] MEDS: Meropenem 500 MG in Sodium Chloride 0.9% 100 ML IVPB SCH (17:05)
[2018-04-11] MEDS: Oxycodone/Acetaminophen 5/325 mg Tab PO PRN (22:38)
[2018-04-12] MEDS: Meropenem 500 MG in Sodium Chloride 0.9% 100 ML IVPB SCH ×3 (00:26→18:13)
[2018-04-12 06:32] LABS: BASO # 0.1 K/uL (0.0-0.2); BASO % 0.6 % (0.0-2.0); EOS # 0.1 K/uL (0.0-0.7); EOS % 1.2 % (0.0-4.0); HEMOGLOBIN 9.9 g/dL (12.0-16.0); LYMPH # 2.8 K/uL (1.0-4.3); LYMPH % 31.8 % (20.0-40.0); MEAN CELL VOLUME 82.7 fl (81.0-99.0); MEAN CORPUSCULAR HEMOGLOBIN 27.3 pg (27.0-31.0); MEAN PLATELET VOLUME 10.5 fl (7.2-11.7); MONO # 0.7 K/uL (0.0-0.8); MONO % 8.1 % (0.0-10.0); NEUT # 5.1 K/uL (1.8-7.0); NEUT % 58.3 % (50.0-75.0); NRBC % 0.2 % (0.0-0.0); RBC 3.62 Mil/uL (3.80-5.20); RED CELL DISTRIBUTION WIDTH 15.4 % (11.5-14.5); WHITE BLOOD COUNT 8.7 K/uL (4.8-10.8)
[2018-04-12 06:39] LABS: ALBUMIN 3.3 g/dL (3.5-5.0); CALCIUM 8.8 mg/dL (8.4-10.2)
--- NOTE | 2018-04-12 06:58 | CP.PCM.PN ---
Subjective - Date & Time of Evaluation Date of Evaluation: 04/12/18 Time of Evaluation: 07:00 - Subjective Subjective: Pt is seen and examined by bed side. there was no acute episode overnight. Pt had no complain, she denies fever, chest pain, sob, abd pain, diarrhea, constipation, dysuria or polyuria. pt have no pain on the Right leg at the moment. Objective - Vital Signs/Intake and Output Vital Signs (last 24 hours): Temp Pulse Resp BP Pulse Ox 98.8 F 71 18 152/69 H 98 04/12/18 00:00 04/12/18 00:00 04/12/18 00:00 04/12/18 00:00 04/12/18 00:00 - Medications Medications: Current Medications Acetaminophen (Tylenol 325mg Tab) 650 mg PO Q6 PRN PRN Reason: Pain, moderate (4-7) Clopidogrel Bisulfate (Plavix) 75 mg PO DAILY [facility] Dextrose (Dextrose 50% Inj) 0 ml IV STAT PRN; Protocol PRN Reason: Hypoglycemia Protocol Dextrose (Glutose 15) 0 gm PO ONCE PRN; Protocol PRN Reason: Hypoglycemia Protocol Enoxaparin Sodium (Lovenox) 40 mg SC DAILY [facility] PRN Reason: Protocol Glipizide (Glucotrol) 10 mg PO BIDAC [facility] Last Admin: 04/11/18 17:04 Dose: 10 mg Glucagon (Glucagen Diagnostic Kit) 0 mg IM STAT PRN; Protocol PRN Reason: Hypoglycemia Protocol Hydralazine HCl (Apresoline) 10 mg PO BID [facility] Last Admin: 04/11/18 16:58 Dose: 10 mg Hydrochlorothiazide (Hydrodiuril) 25 mg PO DAILY [facility] Vancomycin HCl 1 gm/ Sodium (Chloride) 250 mls @ 250 mls/hr IVPB Q12H [facility] PRN Reason: Protocol Last Admin: 04/12/18 03:39 Dose: 250 mls/hr Meropenem 500 mg/ Sodium (Chloride) 100 mls @ 100 mls/hr IVPB Q8 [facility] PRN Reason: Protocol Last Admin: 04/12/18 00:26 Dose: 100 mls/hr Insulin Human Lispro (Humalog) 0 units SC ACHS [facility] PRN Reason: Protocol Last Admin: 04/11/18 22:30 Dose: Not Given Metoprolol Succinate (Toprol Xl) 25 mg PO DAILY [facility] Oxycodone/Acetaminophen (Percocet 5/325 Mg Tab) 1 tab PO Q4 PRN PRN Reason: Pain, severe (8-10) Stop: 04/14/18 15:24 Last Admin: 04/11/18 22:38 Dose: 1 tab - Labs Labs: 04/12/18 05:00 04/12/18 05:00 - Constitutional Appears: Well, Non-toxic, No Acute Distress - Head Exam Head Exam: ATRAUMATIC, NORMAL INSPECTION, NORMOCEPHALIC - Eye Exam Eye Exam: EOMI, Normal appearance, PERRL Pupil Exam: NORMAL ACCOMODATION, PERRL - ENT Exam ENT Exam: Mucous Membranes Moist, Normal Exam - Neck Exam Neck Exam: Full ROM, Normal Inspection - Respiratory Exam Respiratory Exam: Clear to Ausculation Bilateral, NORMAL BREATHING PATTERN - Cardiovascular Exam Cardiovascular Exam: REGULAR RHYTHM, +S1, +S2 - GI/Abdominal Exam GI & Abdominal Exam: Soft, Normal Bowel Sounds. absent: Tenderness - Extremities Exam Extremities Exam: Full ROM, Normal Capillary Refill, Normal Inspection Additional comments: Ulcer noted on sole of right foot, ulcer dry, tainted with iode, no drainage or smell noted at moment - Back Exam Back Exam: NORMAL INSPECTION - Neurological Exam Neurological Exam: Alert, Awake, Oriented x3 - Psychiatric Exam Psychiatric exam: Normal Affect, Normal Mood - Skin Skin Exam: Dry, Intact, Normal Color, Warm Assessment and Plan - Assessment and Plan (Free Text) Assessment: 52 yo f with pmh of HTN, DM, PAD, Iron dificiency anemia, hypercholesterolemia, charcot arthropathy, presented to ED due to pain in right food. Admitted to Treat cellulites Cellulites Wound culture Xray of foot: cant R/O osteo, MRI is needed. ID consult on the case Podiatry consult is on case Continue Meropenem 500 mg day 2 Vanco day 2 Percocet for sever pain Tylenol if moderate pain F/U CBC with differential F/u blood culture F/U wound culture F/U Ceretic WBC Monitor vitals HTN Controlled Hydralazine 25mg Metoprolol succinate 25 Er Hctz 25mg Plavix 75mg DM Controlled Glipizide 10mg, Continue on insulin coverage scale hypoglycemic protocol F/U Urine microalbumin F/U HA1c level Constipation Senokot Iron Deficiency anemia Controlled DVT prophilaxis Levonox
[2018-04-12] MEDS: Insulin Lispro (humaLOG) 100 Units/ml Inj SC SCH ×3 (08:41→16:13)
[2018-04-12] MEDS: Metoprolol Succinate 25 mg XL Tab PO SCH (08:45)
[2018-04-12] MEDS: Enoxaparin 40 mg Syringe SC SCH (08:45)
--- NOTE | 2018-04-12 09:10 | RAD ---
Date of service: 04/11/2018 PROCEDURE: Right Foot Radiographs. HISTORY: ulcer w/purulence r/o OM COMPARISON: None. FINDINGS: BONES: Diffuse osteopenia may reflect advanced osteoporosis. Clinically correlate. No displaced fracture or focal destructive bony lesions appreciated acutely. No definite periosteal changes to suggest osteomyelitis including at the plantar mid to hindfoot distribution. A small ulcer is identified at the plantar foot soft tissues with emphysematous changes and a tract leading from the skin surface into the deep foot soft tissues with local edema associated. No retained radiodense foreign body is identified. MRI is more sensitive for osteomyelitis than plain film radiography and should be considered for follow-up. JOINTS: There is midfoot collapse which may reflect severe pes planus with the inferior bony surface of the midfoot foot appearing convex inferiorly rather than flat or concave in the lateral view. While there is no dislocation or subluxation, a deformity of the talus is appreciated likely on gross degenerative basis with the posterior margins of the talus quite diminutive though the talar dome appears intact. Diffuse advanced degenerative joint disease seen throughout the right foot of of particularly at the tarsal tarsal and tarsometatarsal articulations. Fusion of the cuboid with the 5th and possibly 4th metatarsal bones is suggested. SOFT TISSUES: Please see bone section above. OTHER FINDINGS: None. IMPRESSION: No definitive pattern suggest osteomyelitis. An ulcer is appreciate the mid at the plantar midfoot soft tissues. MRI is available follow-up if clinically warranted for added bony evaluation. Gross osteopenia may indicate advanced osteoporosis. Gross pes planus likely present in this nonweightbearing exam. Clinically correlate. 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
--- NOTE | 2018-04-12 11:21 | CP.PCM.PN ---
Subjective - Date & Time of Evaluation Date of Evaluation: 04/12/18 Time of Evaluation: 08:00 - Subjective Subjective: admitted for possible OM right foot- nonhealing ulcer failed out pt Rx may need debridement Objective - Vital Signs/Intake and Output Vital Signs (last 24 hours): Temp Pulse Resp BP Pulse Ox 98.7 F 63 18 152/74 H 99 04/12/18 08:19 04/12/18 08:45 04/12/18 08:19 04/12/18 08:45 04/12/18 08:19 - Medications Medications: Current Medications Acetaminophen (Tylenol 325mg Tab) 650 mg PO Q6 PRN PRN Reason: Pain, moderate (4-7) Clopidogrel Bisulfate (Plavix) [address] [facility] Last Admin: 04/12/18 08:46 Dose: 75 mg Dextrose (Dextrose 50% Inj) 0 ml IV STAT PRN; Protocol PRN Reason: Hypoglycemia Protocol Dextrose (Glutose 15) 0 gm PO ONCE PRN; Protocol PRN Reason: Hypoglycemia Protocol Enoxaparin Sodium (Lovenox) 40 mg SC DAILY [facility] PRN Reason: Protocol Last Admin: 04/12/18 08:45 Dose: 40 mg Glipizide (Glucotrol) [address] [facility] Last Admin: 04/12/18 08:45 Dose: 10 mg Glucagon (Glucagen Diagnostic Kit) 0 mg IM STAT PRN; Protocol PRN Reason: Hypoglycemia Protocol Hydralazine HCl (Apresoline) [address] [facility] Last Admin: 04/12/18 08:44 Dose: 10 mg Hydrochlorothiazide (Hydrodiuril) [address] [facility] Last Admin: 04/12/18 08:45 Dose: 25 mg Vancomycin HCl 1 gm/ Sodium (Chloride) 250 mls @ 250 mls/hr IVPB Q12H [facility] PRN Reason: Protocol Last Admin: 04/12/18 03:39 Dose: 250 mls/hr Meropenem 500 mg/ Sodium (Chloride) 100 mls @ 100 mls/hr IVPB Q8 [facility] PRN Reason: Protocol Last Admin: 04/12/18 08:44 Dose: 100 mls/hr Insulin Human Lispro (Humalog) 0 units SC ACHS [facility] PRN Reason: Protocol Last Admin: 04/12/18 08:41 Dose: Not Given Metoprolol Succinate (Toprol Xl) [address] [facility] Last Admin: 04/12/18 08:45 Dose: 25 mg Oxycodone/Acetaminophen (Percocet 5/325 Mg Tab) 1 tab PO Q4 PRN PRN Reason: Pain, severe (8-10) Stop: 04/14/18 15:24 Last Admin: 04/11/18 22:38 Dose: 1 tab - Labs Labs: 04/12/18 05:00 04/12/18 05:00 - Constitutional Appears: Chronically Ill - Head Exam Head Exam: NORMAL INSPECTION - Eye Exam Eye Exam: absent: Scleral icterus - ENT Exam ENT Exam: Mucous Membranes Dry - Neck Exam Neck Exam: absent: Lymphadenopathy - Respiratory Exam Respiratory Exam: Decreased Breath Sounds - Cardiovascular Exam Cardiovascular Exam: REGULAR RHYTHM - GI/Abdominal Exam GI & Abdominal Exam: Distended - Rectal Exam Rectal Exam: Deferred - Exam Exam: NORMAL INSPECTION - Extremities Exam Extremities Exam: absent: Pedal Edema - Back Exam Back Exam: absent: CVA tenderness (L), CVA tenderness (R) Assessment and Plan (1) Diabetic foot ulcer Status: Acute (2) Chronic wound of extremity Status: Acute (3) Foot ulcer Status: Acute - Assessment and Plan (Free Text) Assessment: will renew iv rx
--- NOTE | 2018-04-12 12:29 | CP.PCM.PN ---
Addendum entered and electronically signed by Ritesh Mckeon DPM 04/13/18 08: 13: Patient was seen in the bedside with attending Esthela Marley. Original Note: Subjective - Date & Time of Evaluation Date of Evaluation: 04/12/18 Time of Evaluation: 12:23 - Subjective Subjective: Podiatry progress notes for attending Etshela Marley 52 year old female patient seen and evaluated at the bedside for infected ulcer of the right foot. Patient is sitting in her bed comfortably and NAD. Patient is AAO X 3 Patient states that she is having some tingling pain in the site of the ulcer at her right foot. Patient states that her other foot has a plantar ulcer which is healed. She denies any pain in the left foot healed ulcer site. Patient denies any overnight acute events. She denies any F/N/V/C or SOB overnight. She denies any other pedal complaint. Objective - Vital Signs/Intake and Output Vital Signs (last 24 hours): Temp Pulse Resp BP Pulse Ox 98.7 F 63 18 152/74 H 99 04/12/18 08:19 04/12/18 08:45 04/12/18 08:19 04/12/18 08:45 04/12/18 08:19 - Medications Medications: Current Medications Acetaminophen (Tylenol 325mg Tab) 650 mg PO Q6 PRN PRN Reason: Pain, moderate (4-7) Atorvastatin Calcium (Lipitor) 40 mg PO DAILY [facility] Clopidogrel Bisulfate (Plavix) 75 mg PO DAILY [facility] Last Admin: 04/12/18 08:46 Dose: 75 mg Dextrose (Dextrose 50% Inj) 0 ml IV STAT PRN; Protocol PRN Reason: Hypoglycemia Protocol Dextrose (Glutose 15) 0 gm PO ONCE PRN; Protocol PRN Reason: Hypoglycemia Protocol Enoxaparin Sodium (Lovenox) 40 mg SC DAILY [facility] PRN Reason: Protocol Last Admin: 04/12/18 08:45 Dose: 40 mg [facility] Last Admin: 04/12/18 08:45 Dose: 10 mg Glucagon (Glucagen Diagnostic Kit) 0 mg IM STAT PRN; Protocol PRN Reason: Hypoglycemia Protocol Hydralazine HCl (Apresoline) 10 mg PO BID [facility] Last Admin: 04/12/18 08:44 Dose: 10 mg Hydrochlorothiazide (Hydrodiuril) 25 mg PO DAILY [facility] Last Admin: 04/12/18 08:45 Dose: 25 mg Vancomycin HCl 1 gm/ Sodium (Chloride) 250 mls @ 250 mls/hr IVPB Q12H [facility] PRN Reason: Protocol Last Admin: 04/12/18 03:39 Dose: 250 mls/hr Meropenem 500 mg/ Sodium (Chloride) 100 mls @ 100 mls/hr IVPB Q8 [facility] PRN Reason: Protocol Last Admin: 04/12/18 08:44 Dose: 100 mls/hr Insulin Human Lispro (Humalog) 0 units SC ACHS [facility] PRN Reason: Protocol Last Admin: 04/12/18 08:41 Dose: Not Given Metoprolol Succinate (Toprol Xl) 25 mg PO DAILY [facility] Last Admin: 04/12/18 08:45 Dose: 25 mg Oxycodone/Acetaminophen (Percocet 5/325 Mg Tab) 1 tab PO Q4 PRN PRN Reason: Pain, severe (8-10) Stop: 04/14/18 15:24 Last Admin: 04/11/18 22:38 Dose: 1 tab - Labs Labs: 04/12/18 05:00 04/12/18 05:00 - Constitutional Appears: Well, Non-toxic, No Acute Distress - Head Exam Head Exam: ATRAUMATIC, NORMOCEPHALIC - Extremities Exam Additional comments: LE focused physical exam: Vasc: DP/PT pulses palpable 2/4 b/l. Temp gradient warm to warm b/l, with increase in warmth noted to plantar midfoot and lateral styloid process on the right side. CFT < 3 sec to all digits. No pedal edema noted. Derm: 0.3cm x 0.3cm x 1.2cm ulceration noted to plantar lateral right midfoot; hyperkeratotic rim present. No probe to bone, No malodor or undermining. Gentian kapil noted to wound periphery from previous applications. Mild fluctuance noted to wound periphery proximally. Minimal purulent drainage elicited with pressure. Erythema noted to styloid process on the right side. Healed ulcer on the plantar aspect of the left midfoot surrounded by Gentian kapil applied previously. Neuro: Protective sensation grossly diminished Ortho: Pain on palpation noted to ulceration and styloid process of the right foot. Charcot neuroarthropathy deformity present with multiple bony prominences to plantar midfoot b/l. Muscle strength 5/5 for all dorsiflexors, plantarflexors , inverters, and everters b/l. - Neurological Exam Neurological Exam: Alert, Awake, Oriented x3 - Psychiatric Exam Psychiatric exam: Normal Affect, Normal Mood Assessment and Plan - Assessment and Plan (Free Text) Assessment: 52 year old female patient seen and evaluated at the bedside for infected right foot ulceration and cellulites. Stable healed left foot ulcer Plan: Patient seen and evaluated at the bedside. Discussed plan with attending, Dr. Proctor Chart, Vitals and labs reviewed; Afebrile, No leukocytosis and ESR is 55 Right foot X-ray reviewed: No ST emphysema, charcot arthropathy changes in midfoot Ceretec right foot bone scan: Pending Right foot wound culture; Preliminary, No growth after 24 hours. Local wound care - DSD bilaterally As per ID continue Merpenem, Zosyn IV. Podiatry will continue to follow up the patient in house.
[2018-04-12] MEDS: Multivitamin With Minerals Tab PO SCH (17:11)
[2018-04-12] MEDS: Docusate-Senna 50 mg-8.6 mg Tab PO SCH (21:41)
[2018-04-12] MEDS: Oxycodone/Acetaminophen 5/325 mg Tab PO PRN (23:46)
[2018-04-13] MEDS: Insulin Lispro (humaLOG) 100 Units/ml Inj SC SCH ×5 (00:04→22:30)
[2018-04-13] MEDS: Meropenem 500 MG in Sodium Chloride 0.9% 100 ML IVPB SCH ×3 (00:06→16:06)
[2018-04-13 07:01] LABS: BASO # 0.1 K/uL (0.0-0.2); BASO % 0.9 % (0.0-2.0); EOS # 0.1 K/uL (0.0-0.7); EOS % 2.1 % (0.0-4.0); HEMOGLOBIN 9.2 g/dL (12.0-16.0); LYMPH # 2.5 K/uL (1.0-4.3); LYMPH % 40.4 % (20.0-40.0); MEAN CELL VOLUME 82.4 fl (81.0-99.0); MEAN CORPUSCULAR HEMOGLOBIN 26.7 pg (27.0-31.0); MEAN CORPUSCULAR HGB CONC 32.4 g/dL (33.0-37.0); MEAN PLATELET VOLUME 10.3 fl (7.2-11.7); MONO # 0.5 K/uL (0.0-0.8); MONO % 7.7 % (0.0-10.0); NEUT % 48.9 % (50.0-75.0); NRBC % 0.1 % (0.0-0.0); RBC 3.45 Mil/uL (3.80-5.20); RED CELL DISTRIBUTION WIDTH 15.3 % (11.5-14.5); WHITE BLOOD COUNT 6.2 K/uL (4.8-10.8)
--- NOTE | 2018-04-13 07:03 | CP.PCM.PN ---
Subjective - Date & Time of Evaluation Date of Evaluation: 04/13/18 Time of Evaluation: 06:45 - Subjective Subjective: Pt is seen and examined at bed, there was no acute event overnight. Pt had constipation last night, and improved with senakot. Pt couldnt sleep today due to her neighbor was coughing all night. Pt had no other complain, she had no fever, chest pain, SOB, abdominal pain, dysuria or polyuria. Objective - Vital Signs/Intake and Output Vital Signs (last 24 hours): Temp Pulse Resp BP Pulse Ox 98.3 F 97 H 18 151/78 H 100 04/13/18 01:00 04/13/18 01:00 04/13/18 01:00 04/13/18 01:00 04/13/18 01:00 - Medications Medications: Current Medications Acetaminophen (Tylenol 325mg Tab) 650 mg PO Q6 PRN PRN Reason: Pain, moderate (4-7) Atorvastatin Calcium (Lipitor) 40 mg PO HS [facility] Last Admin: 04/12/18 15:04 Dose: Not Given Clopidogrel Bisulfate (Plavix) 75 mg PO DAILY [facility] Last Admin: 04/12/18 08:46 Dose: 75 mg Dextrose (Dextrose 50% Inj) 0 ml IV STAT PRN; Protocol PRN Reason: Hypoglycemia Protocol Dextrose (Glutose 15) 0 gm PO ONCE PRN; Protocol PRN Reason: Hypoglycemia Protocol Enoxaparin Sodium (Lovenox) 40 mg SC DAILY [facility] PRN Reason: Protocol Last Admin: 04/12/18 08:45 Dose: 40 mg Glipizide (Glucotrol) 10 mg PO BIDAC [facility] Last Admin: 04/12/18 16:12 Dose: 10 mg Glucagon (Glucagen Diagnostic Kit) 0 mg IM STAT PRN; Protocol PRN Reason: Hypoglycemia Protocol Hydralazine HCl (Apresoline) 10 mg PO BID [facility] Last Admin: 04/12/18 16:12 Dose: 10 mg Hydrochlorothiazide (Hydrodiuril) 25 mg PO DAILY [facility] Last Admin: 04/12/18 08:45 Dose: 25 mg Vancomycin HCl 1 gm/ Sodium (Chloride) 250 mls @ 250 mls/hr IVPB Q12H [facility] PRN Reason: Protocol Last Admin: 04/13/18 03:37 Dose: 250 mls/hr Meropenem 500 mg/ Sodium (Chloride) 100 mls @ 100 mls/hr IVPB Q8 [facility] PRN Reason: Protocol Last Admin: 04/13/18 00:06 Dose: 100 mls/hr Insulin Human Lispro (Humalog) 0 units SC ACHS [facility] PRN Reason: Protocol Last Admin: 04/13/18 00:04 Dose: Not Given Metoprolol Succinate (Toprol Xl) 25 mg PO DAILY [facility] Last Admin: 04/12/18 08:45 Dose: 25 mg Multivitamins/Minerals (Therapeutic-M Tab) 1 tab PO DAILY [facility] Last Admin: 04/12/18 17:11 Dose: 1 tab Oxycodone/Acetaminophen (Percocet 5/325 Mg Tab) 1 tab PO Q4 PRN PRN Reason: Pain, severe (8-10) Stop: 04/14/18 15:24 Last Admin: 04/12/18 23:46 Dose: 1 tab Senna/Docusate Sodium (Senokot S 50 Mg-8.6 Mg) 1 tab PO HS [facility] Last Admin: 04/12/18 21:41 Dose: 1 tab - Labs Labs: 04/12/18 05:00 04/12/18 05:00 - Constitutional Appears: Well, Non-toxic, No Acute Distress - Head Exam Head Exam: ATRAUMATIC, NORMAL INSPECTION, NORMOCEPHALIC - Eye Exam Eye Exam: EOMI, Normal appearance, PERRL Pupil Exam: NORMAL ACCOMODATION, PERRL - ENT Exam ENT Exam: Mucous Membranes Moist, Normal Exam - Neck Exam Neck Exam: Full ROM, Normal Inspection - Respiratory Exam Respiratory Exam: Clear to Ausculation Bilateral, NORMAL BREATHING PATTERN - Cardiovascular Exam Cardiovascular Exam: REGULAR RHYTHM, +S1, +S2 - GI/Abdominal Exam GI & Abdominal Exam: Soft, Normal Bowel Sounds - Extremities Exam Extremities Exam: Full ROM, Normal Capillary Refill. absent: Tenderness Additional comments: Ulcer noted on Right foot, improving - Back Exam Back Exam: NORMAL INSPECTION - Neurological Exam Neurological Exam: Alert, Awake, Oriented x3 - Psychiatric Exam Psychiatric exam: Normal Affect, Normal Mood - Skin Skin Exam: Intact, Normal Color, Warm Assessment and Plan - Assessment and Plan (Free Text) Assessment: ssessment and Plan 52 yo f with pmh of HTN, DM, PAD, Iron dificiency anemia, hypercholesterolemia, charcot arthropathy, presented to ED due to pain in right food. Admitted to Treat cellulites Cellulites On right foot Improved Wound culture Xray of foot: cant R/O osteo. 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
[2018-04-13 07:07] LABS: BLOOD UREA NITROGEN 22 mg/dl (7-17); CALCIUM 8.5 mg/dL (8.4-10.2); GFR NON-AFRICAN AMERICAN 52
--- NOTE | 2018-04-13 08:13 | CP.PCM.PN ---
Subjective - Date & Time of Evaluation Date of Evaluation: 04/13/18 Time of Evaluation: 08:49 - Subjective Subjective: Podiatry progress notes for attending Esthela Marley 52 year old female patient seen and evaluated at the bedside with attending Esthela Marley for infected ulcer of the right foot. Patient is sitting in her bed comfortably. Patient is not in acute distress. Patient is AAO X 3. She states that she is today she is not having any pain in the site of the ulcer at her right foot. Patient states that her other foot has a plantar ulcer which is healed and stable now. She denies any pain in the left foot healed ulcer site. Patient denies any overnight acute events. She denies any F/N/V/C or SOB overnight. She denies any other pedal complaint. Objective - Vital Signs/Intake and Output Vital Signs (last 24 hours): Temp Pulse Resp BP Pulse Ox 98.3 F 97 H 18 151/78 H 100 04/13/18 01:00 04/13/18 01:00 04/13/18 01:00 04/13/18 01:00 04/13/18 01:00 - Medications Medications: Current Medications Acetaminophen (Tylenol 325mg Tab) 650 mg PO Q6 PRN PRN Reason: Pain, moderate (4-7) Atorvastatin Calcium (Lipitor) 40 mg PO HS [facility] Last Admin: 04/12/18 15:04 Dose: Not Given Clopidogrel Bisulfate (Plavix) 75 mg PO DAILY [facility] Last Admin: 04/12/18 08:46 Dose: 75 mg Dextrose (Dextrose 50% Inj) 0 ml IV STAT PRN; Protocol PRN Reason: Hypoglycemia Protocol Dextrose (Glutose 15) 0 gm PO ONCE PRN; Protocol PRN Reason: Hypoglycemia Protocol Enoxaparin Sodium (Lovenox) 40 mg SC DAILY [facility] PRN Reason: Protocol Last Admin: 04/12/18 08:45 Dose: 40 mg Glipizide (Glucotrol) 10 mg PO BIDAC [facility] Last Admin: 04/12/18 16:12 Dose: 10 mg Glucagon (Glucagen Diagnostic Kit) 0 mg IM STAT PRN; Protocol PRN Reason: Hypoglycemia Protocol Hydralazine HCl (Apresoline) 10 mg PO BID [facility] Last Admin: 04/12/18 16:12 Dose: 10 mg Hydrochlorothiazide (Hydrodiuril) 25 mg PO DAILY [facility] Last Admin: 04/12/18 08:45 Dose: 25 mg Vancomycin HCl 1 gm/ Sodium (Chloride) 250 mls @ 250 mls/hr IVPB Q12H [facility] PRN Reason: Protocol Last Admin: 04/13/18 03:37 Dose: 250 mls/hr Meropenem 500 mg/ Sodium (Chloride) 100 mls @ 100 mls/hr IVPB Q8 [facility] PRN Reason: Protocol Last Admin: 04/13/18 00:06 Dose: 100 mls/hr Insulin Human Lispro (Humalog) 0 units SC ACHS [facility] PRN Reason: Protocol Last Admin: 04/13/18 00:04 Dose: Not Given Metoprolol Succinate (Toprol Xl) 25 mg PO DAILY [facility] Last Admin: 04/12/18 08:45 Dose: 25 mg Multivitamins/Minerals (Therapeutic-M Tab) 1 tab PO DAILY [facility] Last Admin: 04/12/18 17:11 Dose: 1 tab Oxycodone/Acetaminophen (Percocet 5/325 Mg Tab) 1 tab PO Q4 PRN PRN Reason: Pain, severe (8-10) Stop: 04/14/18 15:24 Last Admin: 04/12/18 23:46 Dose: 1 tab Senna/Docusate Sodium (Senokot S 50 Mg-8.6 Mg) 1 tab PO HS [facility] Last Admin: 04/12/18 21:41 Dose: 1 tab - Labs Labs: 04/13/18 05:25 04/13/18 05:25 - Constitutional Appears: Well, Non-toxic, No Acute Distress - Head Exam Head Exam: ATRAUMATIC, NORMOCEPHALIC - Extremities Exam Additional comments: LE focused physical exam: Vasc: DP/PT pulses palpable 2/4 b/l. Temp gradient warm to cool b/l, CFT < 3 sec to all digits. No pedal edema noted. Derm: 0.2cm x 0.2cm x 1.0 cm ulceration noted to plantar lateral right midfoot; hyperkeratotic rim present. No probe to bone, No malodor or undermining. Gentian kapil noted to wound periphery from previous applications. Mild fluctuance noted to wound periphery proximally. No drainage elicited with pressure. No erythema. Healed ulcer on the plantar aspect of the left midfoot surrounded by Gentian kapil applied previously. Neuro: Protective sensation grossly diminished b/l. Gross sensation intact b/l. Ortho: Mild pain on palpation noted to ulceration and styloid process of the right foot. Charcot neuroarthropathy deformity present with multiple bony prominences to plantar midfoot b/l. Muscle strength 5/5 for all all muscle groups b/l. - Neurological Exam Neurological Exam: Alert, Awake, Oriented x3 - Psychiatric Exam Psychiatric exam: Normal Affect, Normal Mood Assessment and Plan - Assessment and Plan (Free Text) Assessment: 52 year old female patient seen and evaluated at the bedside for infected right foot ulceration and cellulites. Stable healed left foot ulcer Plan: Patient seen and evaluated at the bedside. Discussed plan with attending, Dr. Proctor Chart, Vitals and labs reviewed; Afebrile, No leukocytosis and ESR is 55 Right foot X-ray reviewed: No ST emphysema, charcot arthropathy changes in midfoot Ceretec right foot bone scan: Pending Right foot wound culture; Preliminary, No growth after 24 hours. Local wound care - DSD and Silver algenate on the right side and DSD on the left side. As per ID continue Libby Hemphill IV. Podiatry will continue to follow up the patient in house.
[2018-04-13] MEDS: Multivitamin With Minerals Tab PO SCH (09:27)
[2018-04-13] MEDS: Enoxaparin 40 mg Syringe SC SCH (09:27)
[2018-04-13] MEDS: Metoprolol Succinate 25 mg XL Tab PO SCH (09:31)
[2018-04-13 11:39] LABS: % IRON SATURATION 11 % (20-55); IRON 26 ug/dL (37-170); TOTAL IRON BINDING CAPACITY 240 ug/dL (250-450)
[2018-04-13] MEDS ORDERED: Gadodiamide 287 MG/ML VIAL (15ML) IV ONE (19:00)
[2018-04-13] MEDS: Docusate-Senna 50 mg-8.6 mg Tab PO SCH (21:14)
[2018-04-14] MEDS: Meropenem 500 MG in Sodium Chloride 0.9% 100 ML IVPB SCH ×3 (00:28→16:08)
--- NOTE | 2018-04-14 06:34 | CP.PCM.PN ---
Subjective - Date & Time of Evaluation Date of Evaluation: 04/14/18 Time of Evaluation: 07:00 - Subjective Subjective: Pt is seen and examined at bed site, no acute event overnight, pt is lying in bed comfortable. She denies pain on ulcer expect if press on it. Pt denies fever , chill, headache, chest pain, SOB, abd pain, diarrhea, still have not gone to bathroom, no dysuria polyuria or any other symptoms. Objective - Vital Signs/Intake and Output Vital Signs (last 24 hours): Temp Pulse Resp BP Pulse Ox 97.8 F 69 18 156/77 H 100 04/14/18 00:00 04/14/18 00:00 04/14/18 00:00 04/14/18 00:00 04/14/18 00:00 - Medications Medications: Current Medications Acetaminophen (Tylenol 325mg Tab) 650 mg PO Q6 PRN PRN Reason: Pain, moderate (4-7) Atorvastatin Calcium (Lipitor) 40 mg PO HS [facility] Last Admin: 04/13/18 21:14 Dose: 40 mg Clopidogrel Bisulfate (Plavix) 75 mg PO DAILY [facility] Last Admin: 04/13/18 09:27 Dose: 75 mg Dextrose (Dextrose 50% Inj) 0 ml IV STAT PRN; Protocol PRN Reason: Hypoglycemia Protocol Dextrose (Glutose 15) 0 gm PO ONCE PRN; Protocol PRN Reason: Hypoglycemia Protocol Enalapril Maleate (Vasotec) 5 mg PO DAILY [facility] Last Admin: 04/13/18 12:43 Dose: 5 mg Enoxaparin Sodium (Lovenox) 40 mg SC DAILY [facility] PRN Reason: Protocol Last Admin: 04/13/18 09:27 Dose: 40 mg Ferrous Sulfate (Feosol) 325 mg PO BID [facility] Glipizide (Glucotrol) 10 mg PO ACB [facility] Glipizide (Glucotrol) 5 mg PO ACD [facility] Last Admin: 04/13/18 16:06 Dose: 5 mg Glucagon (Glucagen Diagnostic Kit) 0 mg IM STAT PRN; Protocol PRN Reason: Hypoglycemia Protocol Hydralazine HCl (Apresoline) 10 mg PO BID [facility] Last Admin: 04/13/18 16:06 Dose: 10 mg Hydrochlorothiazide (Hydrodiuril) 25 mg PO DAILY [facility] Last Admin: 04/13/18 09:32 Dose: 25 mg Vancomycin HCl 1 gm/ Sodium (Chloride) 250 mls @ 250 mls/hr IVPB Q12H [facility] PRN Reason: Protocol Last Admin: 04/13/18 16:16 Dose: Not Given Meropenem 500 mg/ Sodium (Chloride) 100 mls @ 100 mls/hr IVPB Q8 [facility] PRN Reason: Protocol Last Admin: 04/14/18 00:28 Dose: 100 mls/hr Insulin Human Lispro (Humalog) 0 units SC ACHS [facility] PRN Reason: Protocol Last Admin: 04/13/18 22:30 Dose: Not Given Metoprolol Succinate (Toprol Xl) 25 mg PO DAILY [facility] Last Admin: 04/13/18 09:31 Dose: 25 mg Multivitamins/Minerals (Therapeutic-M Tab) 1 tab PO DAILY [facility] Last Admin: 04/13/18 09:27 Dose: 1 tab Oxycodone/Acetaminophen (Percocet 5/325 Mg Tab) 1 tab PO Q4 PRN PRN Reason: Pain, severe (8-10) Stop: 04/14/18 15:24 Last Admin: 04/12/18 23:46 Dose: 1 tab Senna/Docusate Sodium (Senokot S 50 Mg-8.6 Mg) 1 tab PO HS [facility] Last Admin: 04/13/18 21:14 Dose: 1 tab - Labs Labs: 04/13/18 05:25 04/13/18 05:25 - Constitutional Appears: Well, Non-toxic, No Acute Distress - Head Exam Head Exam: ATRAUMATIC, NORMAL INSPECTION, NORMOCEPHALIC - Eye Exam Eye Exam: EOMI, Normal appearance, PERRL Pupil Exam: NORMAL ACCOMODATION, PERRL - ENT Exam ENT Exam: Mucous Membranes Moist, Normal Exam - Neck Exam Neck Exam: Full ROM, Normal Inspection - Respiratory Exam Respiratory Exam: Clear to Ausculation Bilateral, NORMAL BREATHING PATTERN - Cardiovascular Exam Cardiovascular Exam: REGULAR RHYTHM, +S1, +S2 - GI/Abdominal Exam GI & Abdominal Exam: Soft, Normal Bowel Sounds. absent: Distended, Tenderness - Extremities Exam Extremities Exam: Full ROM, Normal Capillary Refill, Normal Inspection Additional comments: ulcer is noted on sole of Right foot, improving, there is a clear liquid discharge when palpated - Back Exam Back Exam: NORMAL INSPECTION. absent: CVA tenderness (L), CVA tenderness (R) - Neurological Exam Neurological Exam: Alert, Awake, Oriented x3 - Psychiatric Exam Psychiatric exam: Normal Affect, Normal Mood - Skin Skin Exam: Dry, Intact, Normal Color, Warm Assessment and Plan - Assessment and Plan (Free Text) Assessment: 52 yo f with pmh of HTN, DM, PAD, Iron dificiency anemia, hypercholesterolemia, charcot arthropathy, presented to ED due to pain in right food. Admitted to Treat cellulites Cellulites On right foot Improved Xray of foot: cant R/O osteo. ID consult on the case Podiatry consult is on case Percocet for sever pain Tylenol if moderate pain CBC No leukocytosis noted, sign of Iron diff anemia (chronic) Blood culture no growth Wound culture Enterococcus faecalis Continue Meropenem 500 mg day 4 Vanco day 3 ( held due to vanco trough level: 28) Vanco trough repeated 10.3 after held one dose Decrease dose to Vanco 750mg Day 4 MRI: destruction change in midfoot, mild edema within 1st metatarsal, cant r/o osteomylitis, Subcutaneous edema cellulitis/fascitis Monitor vitals F/U PT/INR Pick line ordered for Abx HTN Improving Hydralazine 25mg Metoprolol succinate 25 Er Hctz 25mg Plavix 75mg Enalapril 5mg DM Improving Continue on insulin coverage scale hypoglycemic protocol F/U Urine microalbumin F/U HA1c level Glipizide 10mg AM, 5mg PM Iron Deficiency anemia Controlled Iron 26L TIBC 240 %Sat 11 Start Ferrous sulfate Constipation Improved continue Senokot PRN DVT prophilaxis Levonox
[2018-04-14] MEDS: Multivitamin With Minerals Tab PO SCH (09:06)
[2018-04-14] MEDS: Enoxaparin 40 mg Syringe SC SCH (09:08)
[2018-04-14] MEDS: Insulin Lispro (humaLOG) 100 Units/ml Inj SC SCH ×3 (09:10→16:09)
[2018-04-14] MEDS: Metoprolol Succinate 25 mg XL Tab PO SCH (09:11)
--- NOTE | 2018-04-14 10:14 | CP.PCM.PN ---
<Ritesh Mckeon - Last Filed: 04/14/18 10:09> Subjective - Date & Time of Evaluation Date of Evaluation: 04/14/18 Time of Evaluation: 10:10 - Subjective Subjective: Podiatry progress notes for attending Esthela Marley 52 year old female patient seen and evaluated at the bedside with attending Esthela Marley for infected ulcer of the right foot. Patient is sitting in her bed comfortably and in NAD. Patient is AAO X 3. She states that she is today she is not having any pain in the site of the ulcer at her right foot. Patient states that her other foot has a plantar ulcer which is healed and stable now. She denies any pain in the left foot healed ulcer site. Patient denies any overnight acute events. She denies any F/N/V/C or SOB overnight. She denies any other pedal complaint at this time. Objective - Vital Signs/Intake and Output Vital Signs (last 24 hours): Temp Pulse Resp BP Pulse Ox 97.6 F 53 L 20 159/74 H 100 04/14/18 08:30 04/14/18 08:30 04/14/18 08:30 04/14/18 08:30 04/14/18 08:30 - Medications Medications: Current Medications Acetaminophen (Tylenol 325mg Tab) 650 mg PO Q6 PRN PRN Reason: Pain, moderate (4-7) Atorvastatin Calcium (Lipitor) 40 mg PO HS [facility] Last Admin: 04/13/18 21:14 Dose: 40 mg Clopidogrel Bisulfate (Plavix) 75 mg PO DAILY [facility] Last Admin: 04/14/18 09:08 Dose: 75 mg Dextrose (Dextrose 50% Inj) 0 ml IV STAT PRN; Protocol PRN Reason: Hypoglycemia Protocol Dextrose (Glutose 15) 0 gm PO ONCE PRN; Protocol PRN Reason: Hypoglycemia Protocol Enalapril Maleate (Vasotec) 5 mg PO DAILY [facility] Last Admin: 04/14/18 09:08 Dose: 5 mg Enoxaparin Sodium (Lovenox) 40 mg SC DAILY [facility] PRN Reason: Protocol Last Admin: 04/14/18 09:08 Dose: 40 mg Ferrous Sulfate (Feosol) 325 mg PO BID [facility] Last Admin: 04/14/18 09:08 Dose: Not Given Glipizide (Glucotrol) 10 mg PO ACB [facility] Last Admin: 04/14/18 09:08 Dose: 10 mg Glipizide (Glucotrol) 5 mg PO ACD [facility] Last Admin: 04/13/18 16:06 Dose: 5 mg Glucagon (Glucagen Diagnostic Kit) 0 mg IM STAT PRN; Protocol PRN Reason: Hypoglycemia Protocol Hydralazine HCl (Apresoline) 10 mg PO BID [facility] Last Admin: 04/14/18 09:07 Dose: 10 mg Hydrochlorothiazide (Hydrodiuril) 25 mg PO DAILY [facility] Last Admin: 04/14/18 09:13 Dose: 25 mg Meropenem 500 mg/ Sodium (Chloride) 100 mls @ 100 mls/hr IVPB Q8 [facility] PRN Reason: Protocol Last Admin: 04/14/18 09:11 Dose: 100 mls/hr Vancomycin HCl 750 mg/ Sodium (Chloride) 250 mls @ 166.667 mls/hr IVPB Q12 [facility] PRN Reason: Protocol Insulin Human Lispro (Humalog) 0 units SC ACHS [facility] PRN Reason: Protocol Last Admin: 04/14/18 09:10 Dose: Not Given Metoprolol Succinate (Toprol Xl) 25 mg PO DAILY [facility] Last Admin: 04/14/18 09:11 Dose: 25 mg Multivitamins/Minerals (Therapeutic-M Tab) 1 tab PO DAILY [facility] Last Admin: 04/14/18 09:06 Dose: 1 tab Oxycodone/Acetaminophen (Percocet 5/325 Mg Tab) 1 tab PO Q4 PRN PRN Reason: Pain, severe (8-10) Stop: 04/14/18 15:24 Last Admin: 04/12/18 23:46 Dose: 1 tab Senna/Docusate Sodium (Senokot S 50 Mg-8.6 Mg) 1 tab PO HS [facility] Last Admin: 04/13/18 21:14 Dose: 1 tab - Labs Labs: 04/13/18 05:25 04/13/18 05:25 - Constitutional Appears: Well, Non-toxic, No Acute Distress - Head Exam Head Exam: ATRAUMATIC, NORMOCEPHALIC - Extremities Exam Additional comments: LE focused physical exam: Vasc: DP/PT pulses palpable 2/4 b/l. Temp gradient warm to cool b/l, CFT < 3 sec to all digits. No pedal edema noted. Derm: 0.2cm x 0.2cm x 1.0 cm ulceration noted to plantar lateral right midfoot; hyperkeratotic rim present. No probe to bone, No malodor or undermining. Gentian kapil noted to wound periphery from previous applications. Mild fluctuance noted to wound periphery proximally. About 0.5 cc of serous fluid drainage elicited with pressure. No erythema. Healed ulcer on the plantar aspect of the left midfoot surrounded by Gentian kapil applied previously. Neuro: Protective sensation grossly diminished b/l. Gross sensation intact b/l. Ortho: Mild pain on palpation noted to ulceration and styloid process of the right foot. Charcot neuroarthropathy deformity present with multiple bony prominences to plantar midfoot b/l. Muscle strength 5/5 for all all muscle groups b/l. - Neurological Exam Neurological Exam: Alert, Awake, Oriented x3 - Psychiatric Exam Psychiatric exam: Normal Affect, Normal Mood Assessment and Plan - Assessment and Plan (Free Text) Assessment: 52 year old female patient seen and evaluated at the bedside for infected right foot ulceration and cellulites. Stable healed left foot ulcer Plan: Patient seen and evaluated at the bedside. Discussed plan with attending, Dr. Proctor Chart, Vitals and labs reviewed; Afebrile, No leukocytosis and ESR is 55 Right foot X-ray reviewed: No ST emphysema, charcot arthropathy changes in midfoot MRI right foot done; Report pending. Right foot wound culture; Final, Enterococcus faecalis. Local wound care - DSD and Silver algenate on the right side and DSD on the left side. As per ID continue MerquincyemComfortsyn IV. Podiatry will continue to follow up the patient in house. <Shaji Proctor - Last Filed: 04/14/18 20:52> Objective - Vital Signs/Intake and Output Vital Signs (last 24 hours): Temp Pulse Resp BP Pulse Ox 97.9 F 58 L 18 165/76 H 100 04/14/18 16:38 04/14/18 16:38 04/14/18 16:38 04/14/18 16:38 04/14/18 16:38 - Medications Medications: Current Medications Acetaminophen (Tylenol 325mg Tab) 650 mg PO Q6 PRN PRN Reason: Pain, moderate (4-7) Atorvastatin Calcium (Lipitor) 40 mg PO HS [facility] Last Admin: 04/13/18 21:14 Dose: 40 mg Clopidogrel Bisulfate (Plavix) 75 mg PO DAILY [facility] Last Admin: 04/14/18 09:08 Dose: 75 mg Dextrose (Dextrose 50% Inj) 0 ml IV STAT PRN; Protocol PRN Reason: Hypoglycemia Protocol Dextrose (Glutose 15) 0 gm PO ONCE PRN; Protocol PRN Reason: Hypoglycemia Protocol Enalapril Maleate (Vasotec) 5 mg PO DAILY [facility] Last Admin: 04/14/18 09:08 Dose: 5 mg Enoxaparin Sodium (Lovenox) 40 mg SC DAILY [facility] PRN Reason: Protocol Last Admin: 04/14/18 09:08 Dose: 40 mg Ferrous Sulfate (Feosol) 325 mg PO BID [facility] Last Admin: 04/14/18 16:10 Dose: 325 mg Glipizide (Glucotrol) 10 mg PO ACB [facility] Last Admin: 04/14/18 09:08 Dose: 10 mg Glipizide (Glucotrol) 5 mg PO ACD [facility] Last Admin: 04/14/18 16:10 Dose: 5 mg Glucagon (Glucagen Diagnostic Kit) 0 mg IM STAT PRN; Protocol PRN Reason: Hypoglycemia Protocol Hydralazine HCl (Apresoline) 10 mg PO BID [facility] Last Admin: 04/14/18 16:09 Dose: 10 mg Hydrochlorothiazide (Hydrodiuril) 25 mg PO DAILY [facility] Last Admin: 04/14/18 09:13 Dose: 25 mg Meropenem 500 mg/ Sodium (Chloride) 100 mls @ 100 mls/hr IVPB Q8 [facility] PRN Reason: Protocol Last Admin: 04/14/18 16:08 Dose: 100 mls/hr Vancomycin HCl 750 mg/ Sodium (Chloride) 250 mls @ 166.667 mls/hr IVPB Q12 [facility] PRN Reason: Protocol Last Admin: 04/14/18 20:33 Dose: 166.667 mls/hr Insulin Human Lispro (Humalog) 0 units SC ACHS [facility] PRN Reason: Protocol Last Admin: 04/14/18 16:09 Dose: Not Given Metoprolol Succinate (Toprol Xl) 25 mg PO DAILY [facility] Last Admin: 04/14/18 09:11 Dose: 25 mg Multivitamins/Minerals (Therapeutic-M Tab) 1 tab PO DAILY [facility] Last Admin: 04/14/18 09:06 Dose: 1 tab Senna/Docusate Sodium (Senokot S 50 Mg-8.6 Mg) 1 tab PO HS [facility] Last Admin: 04/13/18 21:14 Dose: 1 tab - Labs Labs: 04/13/18 05:25 04/13/18 05:25 PT 11.5 Seconds (9.8-13.1) 04/14/18 11:49 INR 1.0 (0.9-1.2) 04/14/18 11:49
[2018-04-14 12:22] LABS: PROTHROMBIN TIME 11.5 Seconds (9.8-13.1)
--- NOTE | 2018-04-14 12:32 | CP.PCM.PN ---
Subjective - Date & Time of Evaluation Date of Evaluation: 04/14/18 Time of Evaluation: 08:00 - Subjective Subjective: afeb nad IV rx in progress Objective - Vital Signs/Intake and Output Vital Signs (last 24 hours): Temp Pulse Resp BP Pulse Ox 97.6 F 53 L 20 159/74 H 100 04/14/18 08:30 04/14/18 08:30 04/14/18 08:30 04/14/18 08:30 04/14/18 08:30 - Medications Medications: Current Medications Acetaminophen (Tylenol 325mg Tab) 650 mg PO Q6 PRN PRN Reason: Pain, moderate (4-7) Atorvastatin Calcium (Lipitor) 40 mg PO HS [facility] Last Admin: 04/13/18 21:14 Dose: 40 mg Clopidogrel Bisulfate (Plavix) 75 mg PO DAILY [facility] Last Admin: 04/14/18 09:08 Dose: 75 mg Dextrose (Dextrose 50% Inj) 0 ml IV STAT PRN; Protocol PRN Reason: Hypoglycemia Protocol Dextrose (Glutose 15) 0 gm PO ONCE PRN; Protocol PRN Reason: Hypoglycemia Protocol Enalapril Maleate (Vasotec) 5 mg PO DAILY [facility] Last Admin: 04/14/18 09:08 Dose: 5 mg Enoxaparin Sodium (Lovenox) 40 mg SC DAILY [facility] PRN Reason: Protocol Last Admin: 04/14/18 09:08 Dose: 40 mg Ferrous Sulfate (Feosol) 325 mg PO BID [facility] Last Admin: 04/14/18 09:08 Dose: Not Given Glipizide (Glucotrol) 10 mg PO ACB [facility] Last Admin: 04/14/18 09:08 Dose: 10 mg Glipizide (Glucotrol) 5 mg PO ACD [facility] Last Admin: 04/13/18 16:06 Dose: 5 mg Glucagon (Glucagen Diagnostic Kit) 0 mg IM STAT PRN; Protocol PRN Reason: Hypoglycemia Protocol Hydralazine HCl (Apresoline) 10 mg PO BID [facility] Last Admin: 04/14/18 09:07 Dose: 10 mg Hydrochlorothiazide (Hydrodiuril) 25 mg PO DAILY [facility] Last Admin: 04/14/18 09:13 Dose: 25 mg Meropenem 500 mg/ Sodium (Chloride) 100 mls @ 100 mls/hr IVPB Q8 [facility] PRN Reason: Protocol Last Admin: 04/14/18 09:11 Dose: 100 mls/hr Vancomycin HCl 750 mg/ Sodium (Chloride) 250 mls @ 166.667 mls/hr IVPB Q12 [facility] PRN Reason: Protocol Insulin Human Lispro (Humalog) 0 units SC ACHS [facility] PRN Reason: Protocol Last Admin: 04/14/18 09:10 Dose: Not Given Metoprolol Succinate (Toprol Xl) 25 mg PO DAILY [facility] Last Admin: 04/14/18 09:11 Dose: 25 mg Multivitamins/Minerals (Therapeutic-M Tab) 1 tab PO DAILY [facility] Last Admin: 04/14/18 09:06 Dose: 1 tab Oxycodone/Acetaminophen (Percocet 5/325 Mg Tab) 1 tab PO Q4 PRN PRN Reason: Pain, severe (8-10) Stop: 04/14/18 15:24 Last Admin: 04/12/18 23:46 Dose: 1 tab Senna/Docusate Sodium (Senokot S 50 Mg-8.6 Mg) 1 tab PO HS [facility] Last Admin: 04/13/18 21:14 Dose: 1 tab - Labs Labs: 04/13/18 05:25 04/13/18 05:25 PT 11.5 Seconds (9.8-13.1) 04/14/18 11:49 INR 1.0 (0.9-1.2) 04/14/18 11:49 - Constitutional Appears: Non-toxic, Chronically Ill - Head Exam Head Exam: NORMOCEPHALIC - Eye Exam Eye Exam: EOMI - ENT Exam ENT Exam: Mucous Membranes Dry - Neck Exam Neck Exam: absent: Lymphadenopathy - Respiratory Exam Respiratory Exam: Decreased Breath Sounds - Cardiovascular Exam Cardiovascular Exam: REGULAR RHYTHM - GI/Abdominal Exam GI & Abdominal Exam: Distended, Soft - Rectal Exam Rectal Exam: Deferred - Exam Exam: NORMAL INSPECTION - Extremities Exam Extremities Exam: Pedal Edema Additional comments: Vasc: DP/PT pulses palpable 2/4 b/l. Temp gradient warm to cool b/l, CFT < 3 sec to all digits. No pedal edema noted. Derm: 0.2cm x 0.2cm x 1.0 cm ulceration noted to plantar lateral right midfoot; hyperkeratotic rim present. No probe to bone, No malodor or undermining. Gentian kapil noted to wound periphery from previous applications. Mild fluctuance noted to wound periphery proximally. No drainage elicited with pressure. No erythema. Healed ulcer on the plantar aspect of the left midfoot surrounded by Gentian kapil applied previously. Neuro: Protective sensation grossly diminished b/l. Gross sensation intact b/l. Ortho: Mild pain on palpation noted to ulceration and styloid process of the right foot. Charcot neuroarthropathy deformity present with multiple bony prominences to plantar midfoot b/l. Muscle strength 5/5 for all all muscle groups b/l. - Back Exam Back Exam: absent: CVA tenderness (L), CVA tenderness (R) - Neurological Exam Neurological Exam: Alert, Awake, Oriented x3 - Psychiatric Exam Psychiatric exam: Normal Mood - Skin Skin Exam: Dry Assessment and Plan (1) Diabetic foot ulcer Status: Acute (2) Chronic wound of extremity Status: Acute (3) Foot ulcer Status: Acute - Assessment and Plan (Free Text) Assessment: c/s + for enterococcus MRI pending may need debridement cont IV rx for 6 weeks Vanco adjusted Plan: cont vanco / merrem
[2018-04-14] MEDS: Docusate-Senna 50 mg-8.6 mg Tab PO SCH (21:18)
[2018-04-15] MEDS: Meropenem 500 MG in Sodium Chloride 0.9% 100 ML IVPB SCH ×3 (00:47→16:02)
--- NOTE | 2018-04-15 06:35 | CP.PCM.PN ---
Subjective - Date & Time of Evaluation Date of Evaluation: 04/15/18 Time of Evaluation: 07:00 - Subjective Subjective: Pt seen and examined at bedside. Pt was lying on bed comfortable. no acute event overnight, She have slept comfortable. Pt state she had a pick line yesterday night. She state she is ready to go home, she denies having fever chest pain, sob, abdominal pain, diarrhea, constipation, dysuria, polyuria. Objective - Vital Signs/Intake and Output Vital Signs (last 24 hours): Temp Pulse Resp BP Pulse Ox 97.7 F 66 20 167/72 H 100 04/14/18 23:43 04/14/18 23:43 04/14/18 23:43 04/14/18 23:43 04/14/18 23:43 - Medications Medications: Current Medications Acetaminophen (Tylenol 325mg Tab) 650 mg PO Q6 PRN PRN Reason: Pain, moderate (4-7) Atorvastatin Calcium (Lipitor) 40 mg PO HS [facility] [place] Last Admin: 04/14/18 21:18 Dose: 40 mg Clopidogrel Bisulfate (Plavix) 75 mg PO DAILY [facility] [place] Last Admin: 04/14/18 09:08 Dose: 75 mg Dextrose (Dextrose 50% Inj) 0 ml IV STAT PRN; Protocol PRN Reason: Hypoglycemia Protocol Dextrose (Glutose 15) 0 gm PO ONCE PRN; Protocol PRN Reason: Hypoglycemia Protocol Enalapril Maleate (Vasotec) 5 mg PO DAILY [facility] [place] Last Admin: 04/14/18 09:08 Dose: 5 mg Enoxaparin Sodium (Lovenox) 40 mg SC DAILY [facility] PRN Reason: Protocol Last Admin: 04/14/18 09:08 Dose: 40 mg Ferrous Sulfate (Feosol) 325 mg PO BID [facility] Last Admin: 04/14/18 16:10 Dose: 325 mg Glipizide (Glucotrol) 10 mg PO ACB [facility] [place] Last Admin: 04/14/18 09:08 Dose: 10 mg Glipizide (Glucotrol) 5 mg PO ACD [facility] [place] Last Admin: 04/14/18 16:10 Dose: 5 mg Glucagon (Glucagen Diagnostic Kit) 0 mg IM STAT PRN; Protocol PRN Reason: Hypoglycemia Protocol Hydralazine HCl (Apresoline) 10 mg PO BID [facility] Last Admin: 04/14/18 16:09 Dose: 10 mg Hydrochlorothiazide (Hydrodiuril) 25 mg PO DAILY [facility] [place] Last Admin: 04/14/18 09:13 Dose: 25 mg Meropenem 500 mg/ Sodium (Chloride) 100 mls @ 100 mls/hr IVPB Q8 [facility] PRN Reason: Protocol Last Admin: 04/15/18 00:47 Dose: 100 mls/hr Vancomycin HCl 750 mg/ Sodium (Chloride) 250 mls @ 166.667 mls/hr IVPB Q12 [facility] PRN Reason: Protocol Last Admin: 04/14/18 20:33 Dose: 166.667 mls/hr Insulin Human Lispro (Humalog) 0 units SC ACHS [facility] PRN Reason: Protocol Last Admin: 04/14/18 16:09 Dose: Not Given Metoprolol Succinate (Toprol Xl) 25 mg PO DAILY [facility] [place] Last Admin: 04/14/18 09:11 Dose: 25 mg Multivitamins/Minerals (Therapeutic-M Tab) 1 tab PO DAILY [facility] [place] Last Admin: 04/14/18 09:06 Dose: 1 tab Senna/Docusate Sodium (Senokot S 50 Mg-8.6 Mg) 1 tab PO HS [facility] [place] Last Admin: 04/14/18 21:18 Dose: 1 tab - Labs Labs: 04/13/18 05:25 04/13/18 05:25 PT 11.5 Seconds (9.8-13.1) 04/14/18 11:49 INR 1.0 (0.9-1.2) 04/14/18 11:49 - Constitutional Appears: Well, Non-toxic, No Acute Distress - Head Exam Head Exam: ATRAUMATIC, NORMAL INSPECTION, NORMOCEPHALIC - Eye Exam Eye Exam: EOMI, Normal appearance, PERRL Pupil Exam: NORMAL ACCOMODATION, PERRL - ENT Exam ENT Exam: Mucous Membranes Moist, Normal Exam - Neck Exam Neck Exam: Full ROM, Normal Inspection - Respiratory Exam Respiratory Exam: Clear to Ausculation Bilateral, NORMAL BREATHING PATTERN - Cardiovascular Exam Cardiovascular Exam: REGULAR RHYTHM, +S1, +S2 - GI/Abdominal Exam GI & Abdominal Exam: Soft, Normal Bowel Sounds. absent: Tenderness - Extremities Exam Extremities Exam: Full ROM Additional comments: Ulcer noted on Right foot, improving, no drainage - Back Exam Back Exam: NORMAL INSPECTION. absent: CVA tenderness (L), CVA tenderness (R) - Neurological Exam Neurological Exam: Alert, Awake, Oriented x3 - Psychiatric Exam Psychiatric exam: Normal Affect, Normal Mood - Skin Skin Exam: Dry, Intact, Normal Color, Warm Assessment and Plan - Assessment and Plan (Free Text) Assessment: Assessment: 52 yo f with pmh of HTN, DM, PAD, Iron dificiency anemia, hypercholesterolemia, charcot arthropathy, presented to ED due to pain in right food. Admitted to Treat cellulites Cellulites On right foot Improved Xray of foot: cant R/O osteo. ID consult on the case Podiatry consult is on case Percocet for sever pain Tylenol if moderate pain CBC No leukocytosis noted, sign of Iron diff anemia (chronic) Blood culture no growth Wound culture Enterococcus faecalis Continue Meropenem 500 mg day 5 Vanco 750mg Day 5 MRI: destruction change in midfoot, mild edema within 1st metatarsal, cant r/o osteomylitis, Subcutaneous edema cellulitis/fascitis Monitor vitals PT/INR WNL Pick line ordered for Abx HTN Improving Hydralazine 25mg Metoprolol succinate 25 Er Hctz 25mg Plavix 75mg Enalapril 5mg DM Improving Continue on insulin coverage scale hypoglycemic protocol F/U Urine microalbumin HA1c 7.2 Glipizide 10mg AM, 5mg PM Iron Deficiency anemia Controlled Iron 26L TIBC 240 %Sat 11 Ferrous sulfate Constipation Improved continue Senokot PRN DVT prophilaxis Levonox
[2018-04-15] MEDS: Multivitamin With Minerals Tab PO SCH (08:40)
[2018-04-15] MEDS: Metoprolol Succinate 25 mg XL Tab PO SCH (08:42)
[2018-04-15] MEDS ORDERED: Lidocaine Hydrochloride 5 ML INJ ONE (08:43)
[2018-04-15] MEDS: Insulin Lispro (humaLOG) 100 Units/ml Inj SC SCH ×4 (08:44→21:35)
--- NOTE | 2018-04-15 09:32 | PCM.SURG1 ---
Surgeon's Initial Post Op Note - Surgeon's Notes Surgeon: Vero Food Critic: None Type of Anesthesia: Local Pre-Operative Diagnosis: Infection Operative Findings: Patent left brachial vein Post-Operative Diagnosis: Infection Operation Performed: Left brachial vein 4F SL 45cm PICC with the tip in the proximal RA Specimen/Specimens Removed: None Estimated Blood Loss: EBL {In ML}: 1 Blood Products Given: N/A Drains Used: No Drains Post-Op Condition: Good Date of Surgery/Procedure: 04/15/18 Time of Surgery/Procedure: 09:00
--- NOTE | 2018-04-15 10:20 | CP.PCM.PN ---
Subjective - Date & Time of Evaluation Date of Evaluation: 04/15/18 Time of Evaluation: 10:18 - Subjective Subjective: Podiatry progress notes for attending Esthela Marley 52 year old female patient seen and evaluated with attending Esthela Marley at the bedside at the radiology department after inserting PICC line for infected ulcer of the right foot. Patient is sitting in her bed comfortably and in NAD. Patient is AAO X 3. She states that she is today she is not having any pain in the site of the ulcer at her right foot. Patient states that her other foot has a plantar ulcer which is healed and stable now. She denies any pain in the left foot healed ulcer site. Patient denies any overnight acute events. She denies any F/N/V/C or SOB overnight. She denies any other pedal complaint at this time. Patient states that she is moving to [place] next Thursday but she will keep F/U with Dr. Proctor for her ulcer issue. Objective - Vital Signs/Intake and Output Vital Signs (last 24 hours): Temp Pulse Resp BP Pulse Ox 96.4 F L 80 18 180/92 H 100 04/15/18 09:00 04/15/18 09:00 04/15/18 09:00 04/15/18 09:00 04/15/18 07:58 - Medications Medications: Current Medications Acetaminophen (Tylenol 325mg Tab) 650 mg PO Q6 PRN PRN Reason: Pain, moderate (4-7) Atorvastatin Calcium (Lipitor) 40 mg PO HS [facility] Last Admin: 04/14/18 21:18 Dose: 40 mg Clopidogrel Bisulfate (Plavix) 75 mg PO DAILY [facility] Last Admin: 04/14/18 09:08 Dose: 75 mg Dextrose (Dextrose 50% Inj) 0 ml IV STAT PRN; Protocol PRN Reason: Hypoglycemia Protocol Dextrose (Glutose 15) 0 gm PO ONCE PRN; Protocol PRN Reason: Hypoglycemia Protocol Enalapril Maleate (Vasotec) 5 mg PO DAILY [facility] Last Admin: 04/15/18 08:41 Dose: 5 mg Enoxaparin Sodium (Lovenox) 40 mg SC DAILY [facility] PRN Reason: Protocol Last Admin: 04/14/18 09:08 Dose: 40 mg Ferrous Sulfate (Feosol) 325 mg PO BID [facility] Last Admin: 04/15/18 08:40 Dose: 325 mg Glipizide (Glucotrol) 10 mg PO ACB [facility] Last Admin: 04/15/18 08:42 Dose: 10 mg Glipizide (Glucotrol) 5 mg PO ACD [facility] Last Admin: 04/14/18 16:10 Dose: 5 mg Glucagon (Glucagen Diagnostic Kit) 0 mg IM STAT PRN; Protocol PRN Reason: Hypoglycemia Protocol Hydralazine HCl (Apresoline) 10 mg PO BID [facility] Last Admin: 04/15/18 08:40 Dose: 10 mg Hydrochlorothiazide (Hydrodiuril) 25 mg PO DAILY [facility] Last Admin: 04/15/18 08:44 Dose: 25 mg Meropenem 500 mg/ Sodium (Chloride) 100 mls @ 100 mls/hr IVPB Q8 [facility] PRN Reason: Protocol Last Admin: 04/15/18 08:39 Dose: 100 mls/hr Vancomycin HCl 750 mg/ Sodium (Chloride) 250 mls @ 166.667 mls/hr IVPB Q12 [facility] PRN Reason: Protocol Last Admin: 04/14/18 20:33 Dose: 166.667 mls/hr Insulin Human Lispro (Humalog) 0 units SC ACHS [facility] PRN Reason: Protocol Last Admin: 04/15/18 08:44 Dose: Not Given Metoprolol Succinate (Toprol Xl) 25 mg PO DAILY [facility] Last Admin: 04/15/18 08:42 Dose: 25 mg Multivitamins/Minerals (Therapeutic-M Tab) 1 tab PO DAILY [facility] Last Admin: 04/15/18 08:40 Dose: 1 tab Senna/Docusate Sodium (Senokot S 50 Mg-8.6 Mg) 1 tab PO HS [facility] Last Admin: 04/14/18 21:18 Dose: 1 tab - Labs Labs: 04/13/18 05:25 04/13/18 05:25 PT 11.5 Seconds (9.8-13.1) 04/14/18 11:49 INR 1.0 (0.9-1.2) 04/14/18 11:49 - Constitutional Appears: Well, Non-toxic, No Acute Distress - Head Exam Head Exam: ATRAUMATIC, NORMOCEPHALIC - Extremities Exam Additional comments: LE focused physical exam: Vasc: DP/PT pulses palpable 2/4 b/l. Temp gradient warm to cool b/l, CFT < 3 sec to all digits. No pedal edema noted. Derm: 0.2cm x 0.2cm x 1.0 cm ulceration noted to plantar lateral right midfoot; narrow hyperkeratotic rim present. No probe to bone, No malodor or undermining. Gentian kapil noted to wound periphery from previous applications. Mild fluctuance noted to wound periphery proximally. About 0.3 cc of serous fluid drainage elicited with pressure. No erythema. Healed ulcer on the plantar aspect of the left midfoot surrounded by Gentian kapil applied previously. Neuro: Protective sensation grossly diminished b/l. Gross sensation intact b/l. Ortho: Mild pain on palpation noted to ulceration and Styloid process of the right foot. Charcot neuroarthropathy deformity present with multiple bony prominences to plantar midfoot b/l. Muscle strength 5/5 for all all muscle groups b/l. - Neurological Exam Neurological Exam: Alert, Awake, Oriented x3 Assessment and Plan - Assessment and Plan (Free Text) Assessment: 52 year old female patient seen and evaluated at the bedside for infected right foot ulceration and cellulites. Stable healed left foot ulcer Plan: Patient seen and evaluated at the bedside in the radiology department after inserting the PICC line. Discussed plan in details with attending, Dr. Proctor Contacted the 1ry team, ID and spring encaser for discussing the plan of treatment and the arrangement of patient discharge. Chart, Vitals and labs reviewed; Afebrile, No leukocytosis and ESR is 55. Right foot X-ray reviewed: No ST emphysema, charcot arthropathy changes in midfoot. MRI right foot done; Report still pending. Right foot wound culture; Final, Enterococcus faecalis. Local wound care - DSD and Silver algenate on the right side and DSD on the left side. Patient is planned to be discharged today after getting official report of MRI right foot. Patient instructed to continue dressing her right foot every day using DSD and silver algenate and to cover the healed ulcer site in the left foot using DSD. As per ID patient will continue IV antibiotics for 6 weeks in the PICC line. Patient instructed to go to the ED in case she has F/N/V/C/SOB, pain, redness, hotness, swelling, malodor or increased drainage in her ulcer site. Patient expressed verbal understanding. Patient will F/U with Dr. Proctor in his office after discharge.
[2018-04-15 11:29] LABS: SQUAMOUS EPITHIAL 1 /hpf (0-5); URINE BILIRUBIN NEGATIVE (NEGATIVE); URINE BLOOD NEGATIVE (NEGATIVE); URINE CLARITY CLEAR (Clear); URINE COLOR STRAW (YELLOW); URINE GLUCOSE (UA) NEG (Normal); URINE LEUKOCYTE ESTERASE NEG Leu/uL (Negative); URINE PROTEIN NEGATIVE (NEGATIVE); URINE UROBILINOGEN 0.2-1.0 mg/dL (0.2-1.0)
--- NOTE | 2018-04-15 11:52 | VASCULAR ---
Procedure: Ultrasound and fluoroscopically placed left upper extremity PICC. Clinical indication: Long-term IV antibiotics. Technique: The relative risks and indications of the procedure were explained to the patient and written informed consent obtained. The patient was placed supine on the angiographic table and the left arm prepped and draped in the usual sterile fashion. A tourniquet was applied to the left axilla. 1% lidocaine was used to anesthetize the skin and soft tissues at the puncture site above the elbow. The left basilic vein was punctured under direct ultrasound guidance with a micropuncture set. A 0.018 guidewire was advanced centrally and used to measure the length to the SVC/RA junction. A 4 [place] single -lumen PICC size 45cm long was advanced to the proximal right atrium under fluoroscopic guidance. The catheter was flushed and secured. The patient tolerated the procedure well. Postprocedure chest radiograph was obtained to ensure location of the catheter tip at the SVC right atrial junction. No postprocedure pneumothorax identified. Impression: Ultrasound and fluoroscopically placed left upper extremity PICC. A 4 [place] single -lumen PICC line size 45 cm long was advanced to the proximal right atrium. PICC is ready for use.
--- NOTE | 2018-04-15 13:08 | CP.PCM.DIS ---
Provider - Provider Date of Admission: 04/11/18 15:00 Attending physician: Sheila Peraza MD Time Spent in preparation of Discharge (in minutes): 15 Hospital Course - Lab Results Lab Results: Micro Results 04/11/18 17:02 Blood-Venous Blood Culture - Preliminary NO GROWTH AFTER 3 DAYS 04/11/18 17:02 Foot - Right Gram Stain - Final 04/11/18 17:02 Foot - Right Wound Culture - Final Enterococcus Faecalis Most Recent Lab Values WBC 6.2 K/uL (4.8-10.8) 04/13/18 05:25 RBC 3.45 Mil/uL (3.80-5.20) L 04/13/18 05:25 Hgb 9.2 g/dL (12.0-16.0) L 04/13/18 05:25 Hct 28.4 % (34.0-47.0) L 04/13/18 05:25 MCV 82.4 fl (81.0-99.0) 04/13/18 05:25 MCH 26.7 pg (27.0-31.0) L 04/13/18 05:25 MCHC 32.4 g/dL (33.0-37.0) L 04/13/18 05:25 RDW 15.3 % (11.5-14.5) H 04/13/18 05:25 Plt Count 176 K/uL (130-400) 04/13/18 05:25 MPV 10.3 fl (7.2-11.7) 04/13/18 05:25 Neut % (Auto) 48.9 % (50.0-75.0) L 04/13/18 05:25 Lymph % (Auto) 40.4 % (20.0-40.0) H 04/13/18 05:25 [place] % (Auto) 7.7 % (0.0-10.0) 04/13/18 05:25 Eos % (Auto) 2.1 % (0.0-4.0) 04/13/18 05:25 Baso % (Auto) 0.9 % (0.0-2.0) 04/13/18 05:25 Neut # (Auto) 3.0 K/uL (1.8-7.0) 04/13/18 05:25 Lymph # (Auto) 2.5 K/uL (1.0-4.3) 04/13/18 05:25 Gonzales # (Auto) 0.5 K/uL (0.0-0.8) 04/13/18 05:25 Eos # (Auto) 0.1 K/uL (0.0-0.7) 04/13/18 05:25 Baso # (Auto) 0.1 K/uL (0.0-0.2) 04/13/18 05:25 ESR 55 mm/hr (0-30) H 04/11/18 12:55 PT 11.5 Seconds (9.8-13.1) 04/14/18 11:49 INR 1.0 (0.9-1.2) 04/14/18 11:49 Sodium 141 mmol/l (132-148) 04/13/18 05:25 Potassium 4.5 MMOL/L (3.6-5.0) 04/13/18 05:25 Chloride 110 mmol/L (98-107) H 04/13/18 05:25 Carbon Dioxide 20 mmol/L (22-30) L 04/13/18 05:25 Anion Gap 16 (10-20) 04/13/18 05:25 BUN 22 mg/dl (7-17) H 04/13/18 05:25 Creatinine 1.1 mg/dl (0.7-1.2) 04/13/18 05:25 Est GFR ( Amer) > 60 04/13/18 05:25 Est GFR (Non-Af Amer) 52 04/13/18 05:25 POC Glucose (mg/dL) 156 mg/dL (65-110) H 04/15/18 10:43 Random Glucose 78 mg/dL (65-105) 04/13/18 05:25 Hemoglobin A1c 7.2 % (4.2-6.5) H 04/11/18 16:19 Calcium 8.5 mg/dL (8.4-10.2) 04/13/18 05:25 Iron 26 ug/dL (37-170) L 04/13/18 11:08 TIBC 240 ug/dL (250-450) L 04/13/18 11:08 % Saturation 11 % (20-55) L 04/13/18 11:08 Ferritin 257.0 ng/Ml (11.1-264.0) 04/14/18 05:35 Total Bilirubin 0.4 mg/dl (0.2-1.3) 04/12/18 05:00 AST 18 U/L (14-36) 04/12/18 05:00 ALT 22 U/L (9-52) 04/12/18 05:00 Alkaline Phosphatase 97 U/L (38-126) 04/12/18 05:00 Total Protein 6.6 G/DL (6.3-8.2) 04/12/18 05:00 Albumin 3.3 g/dL (3.5-5.0) L 04/12/18 05:00 Globulin 3.3 gm/dL (2.2-3.9) 04/12/18 05:00 Albumin/Globulin Ratio 1.0 (1.0-2.1) 04/12/18 05:00 Urine Color Straw (YELLOW) 04/15/18 11:20 Urine Clarity Clear (Clear) 04/15/18 11:20 Urine pH 6.0 (5.0-8.0) 04/15/18 11:20 Ur Specific [place] 1.008 (1.003-1.030) 04/15/18 11:20 Urine Protein Negative mg/dL (NEGATIVE) 04/15/18 11:20 Urine Glucose (UA) Neg mg/dL (Normal) 04/15/18 11:20 Urine Ketones Negative mg/dL (NEGATIVE) 04/15/18 11:20 Urine Blood Negative (NEGATIVE) 04/15/18 11:20 Urine Nitrate Negative (NEGATIVE) 04/15/18 11:20 Urine Bilirubin Negative (NEGATIVE) 04/15/18 11:20 Urine Urobilinogen 0.2-1.0 mg/dL (0.2-1.0) 04/15/18 11:20 Ur Leukocyte Esterase Neg [place]/uL (Negative) 04/15/18 11:20 Urine RBC (Auto) < 1 /hpf (0-3) 04/15/18 11:20 Ur Squamous Epith Cells 1 /hpf (0-5) 04/15/18 11:20 Vancomycin Trough 10.5 ug/mL (5.0-10.0) H 04/14/18 09:00 - Hospital Course Hospital Course: 52 yo f with pmh of HTN, DM, PAD, Iron dificiency anemia, hypercholesterolemia, charcot arthropathy, presented to ED due to pain in right food. Pt will me admitted to tx cellulites and foot ulcer. Podiatry were on the case. Pt was put on ABx (meropenem and vancomycin), pt is improving, due election judge IV abx is needed Pick line was placed, and pt can be discharged home and recieve abx at house. Podiatry and medical team approve pt is medically stable to be discharged home. Check Vanco through every week F/U PCP in 1 week Discharge Exam - Head Exam Head Exam: ATRAUMATIC, NORMAL INSPECTION, NORMOCEPHALIC - Eye Exam Eye Exam: EOMI, Normal appearance, PERRL Pupil Exam: NORMAL ACCOMODATION, PERRL - ENT Exam ENT Exam: Normal Exam - Respiratory Exam Respiratory Exam: Clear to PA & Lateral, NORMAL BREATHING PATTERN, UNREMARKABLE - Cardiovascular Exam Cardiovascular Exam: REGULAR RHYTHM, +S1, +S2 - GI/Abdominal Exam GI & Abdominal Exam: Normal Bowel Sounds, Unremarkable - Extremities Exam Extremities exam: full ROM Additional comments: Ulcer noted on Right sole foot with no discharge - Neurological Exam Neurological exam: Alert, Normal Gait, Oriented x3 - Psychiatric Exam Psychiatric exam: Normal Affect, Normal Mood - Skin Skin Exam: Dry, Intact, Normal Color, Warm Discharge Plan - Follow Up Plan Condition: STABLE Disposition: HOME/ ROUTINE Instructions: Diabetic Foot Ulcer (DC), Foot Care for Diabetics, Diabetes and Diet Additional Instructions: follow up with primary MD 1 week Referrals: Shilo Martinez MD [Staff Provider] - Shaji Proctor DPM [Doctor Podiatric Medicine] -
--- NOTE | 2018-04-15 15:52 | MRI ---
Date of service: 04/13/2018 PROCEDURE: MRI Right Foot HISTORY: Pain. COMPARISON: None available. TECHNIQUE: Multiecho multiplanar sequences were performed through the right foot without the use of intravenous contrast. 14 cc of Omniscan was utilized for intravenous contrast administration. FINDINGS: BONES: Pes planus type deformity of the midfoot is again appreciated although the prominent edema seen at the mid and hindfoot is not has largely resolved. The midfoot remains subluxed dorsally at the level of the 3rd and 4th metatarsal bones at the tarsal metatarsal articulations. Arthrodesis at the cuboid -5th metatarsal joint. Trace edema at the level of this 5th tarsal metatarsal arthrodesis with questionable enhancement. Limited enhances appreciated at the medial talar dome as well as at the 1st metatarsal diametaphysis suspicious for osteomyelitis. No definite additional Marrow enhancement identified. MUSCLES: Edematous changes are identified in the deep central muscles at the plantar midfoot which enhance suspicious for infectious myositis. No definite abscess formation. Lesser similar changes are present in the subcutaneous fat of the plantar midfoot as well. Plantar fascia is minimally thickened potentially reflecting plantar fasciitis without suspicious enhancement or edema however. An ulcer is appreciated at the lateral mid subcutaneous soft tissues without definite abscess appreciated. SOFT TISSUES: As above. LISFRANC LIGAMENT: Sprain or partial tear. PLANTAR PLATE: As above. EXTENSOR TENDONS: There is a failure fat suppression at the mid through forefoot however no definite tear or other suspicious edema pattern is felt be present. FLEXOR TENDONS: No definite tear or other suspicious edema. OTHER FINDINGS: None. IMPRESSION: Midfoot ulcer is appreciated without local pattern to suggest osteomyelitis however subtle abnormal signal changes at the proximal 5th metatarsal bone and cuboid bone at the level of their arthrodesis and subtle enhancement are suspicious for osteomyelitis. Additional small foci of enhancement are identified at the medial talar dome and distal 5th metatarsal bone suspicious for the same. Deep midfoot plantar myositis is appreciated without abscess. Midfoot plantar soft tissue ulcer. Additional lesser details as discussed above. Concordant preliminary report from [facility], 04/13/2018.
--- NOTE | 2018-04-15 16:37 | CP.PCM.PN ---
Subjective - Date & Time of Evaluation Date of Evaluation: 04/15/18 Time of Evaluation: 06:25 - Subjective Subjective: Pt is seen and examined, no acute event overnight. Pt was about to leave today but there was a problem with the insurance and receiving the medication. Pt denies any complain, no fever, chest pain sob, abdominal pain, diarrhea, constipation or any other symptoms Objective - Vital Signs/Intake and Output Vital Signs (last 24 hours): Temp Pulse Resp BP Pulse Ox 97.5 F L 60 18 151/79 H 100 04/15/18 16:02 04/15/18 16:02 04/15/18 16:02 04/15/18 16:02 04/15/18 16:02 - Medications Medications: Current Medications Acetaminophen (Tylenol 325mg Tab) 650 mg PO Q6 PRN PRN Reason: Pain, moderate (4-7) Atorvastatin Calcium (Lipitor) 40 mg PO HS [facility] Last Admin: 04/14/18 21:18 Dose: 40 mg Clopidogrel Bisulfate (Plavix) 75 mg PO DAILY [facility] Last Admin: 04/15/18 10:39 Dose: 75 mg Dextrose (Dextrose 50% Inj) 0 ml IV STAT PRN; Protocol PRN Reason: Hypoglycemia Protocol Dextrose (Glutose 15) 0 gm PO ONCE PRN; Protocol PRN Reason: Hypoglycemia Protocol Enalapril Maleate (Vasotec) 5 mg PO DAILY [facility] Last Admin: 04/15/18 08:41 Dose: 5 mg Enoxaparin Sodium (Lovenox) 40 mg SC DAILY [facility] PRN Reason: Protocol Last Admin: 04/14/18 09:08 Dose: 40 mg Ferrous Sulfate (Feosol) 325 mg PO BID [facility] Last Admin: 04/15/18 16:02 Dose: 325 mg Glipizide (Glucotrol) 10 mg PO ACB [facility] Last Admin: 04/15/18 08:42 Dose: 10 mg Glipizide (Glucotrol) 5 mg PO ACD [facility] Last Admin: 04/15/18 16:03 Dose: 5 mg Glucagon (Glucagen Diagnostic Kit) 0 mg IM STAT PRN; Protocol PRN Reason: Hypoglycemia Protocol Hydralazine HCl (Apresoline) 10 mg PO BID [facility] Last Admin: 04/15/18 16:03 Dose: 10 mg Hydrochlorothiazide (Hydrodiuril) 25 mg PO DAILY [facility] Last Admin: 04/15/18 08:44 Dose: 25 mg Meropenem 500 mg/ Sodium (Chloride) 100 mls @ 100 mls/hr IVPB Q8 [facility] PRN Reason: Protocol Last Admin: 04/15/18 16:02 Dose: 100 mls/hr Vancomycin HCl 750 mg/ Sodium (Chloride) 250 mls @ 166.667 mls/hr IVPB Q12 [facility] PRN Reason: Protocol Last Admin: 04/15/18 10:38 Dose: 166.667 mls/hr Insulin Human Lispro (Humalog) 0 units SC ACHS [facility] PRN Reason: Protocol Last Admin: 04/15/18 16:09 Dose: Not Given Metoprolol Succinate (Toprol Xl) 25 mg PO DAILY [facility] Last Admin: 04/15/18 08:42 Dose: 25 mg Multivitamins/Minerals (Therapeutic-M Tab) 1 tab PO DAILY [facility] Last Admin: 04/15/18 08:40 Dose: 1 tab Senna/Docusate Sodium (Senokot S 50 Mg-8.6 Mg) 1 tab PO HS [facility] Last Admin: 04/14/18 21:18 Dose: 1 tab - Labs Labs: 04/13/18 05:25 04/13/18 05:25 PT 11.5 Seconds (9.8-13.1) 04/14/18 11:49 INR 1.0 (0.9-1.2) 04/14/18 11:49 - Constitutional Appears: Well, Non-toxic, No Acute Distress - Head Exam Head Exam: ATRAUMATIC, NORMAL INSPECTION, NORMOCEPHALIC - Eye Exam Eye Exam: EOMI, Normal appearance, PERRL Pupil Exam: NORMAL ACCOMODATION - ENT Exam ENT Exam: Mucous Membranes Moist, Normal Exam - Neck Exam Neck Exam: Full ROM, Normal Inspection - Respiratory Exam Respiratory Exam: Clear to Ausculation Bilateral, NORMAL BREATHING PATTERN - Cardiovascular Exam Cardiovascular Exam: REGULAR RHYTHM, +S1, +S2 - GI/Abdominal Exam GI & Abdominal Exam: Soft, Normal Bowel Sounds - Extremities Exam Extremities Exam: Full ROM, Normal Capillary Refill, Normal Inspection Additional comments: Ulcer noted on Right food, improving - Back Exam Back Exam: NORMAL INSPECTION - Neurological Exam Neurological Exam: Alert, Awake, Normal Gait, Oriented x3 - Psychiatric Exam Psychiatric exam: Normal Affect, Normal Mood
[2018-04-15] MEDS: Docusate-Senna 50 mg-8.6 mg Tab PO SCH (21:42)
[2018-04-16] MEDS: Meropenem 500 MG in Sodium Chloride 0.9% 100 ML IVPB SCH ×3 (01:59→16:04)
[2018-04-16] MEDS ORDERED: Oxycodone/Acetaminophen 5/325 mg Tab PO ONE (02:07)
[2018-04-16] MEDS ORDERED: Lidocaine 5% Patch TD SCH (02:15)
[2018-04-16 08:02] VITALS: O2SAT 100
[2018-04-16] MEDS: Insulin Lispro (humaLOG) 100 Units/ml Inj SC SCH ×3 (08:26→17:15)
[2018-04-16] MEDS: Metoprolol Succinate 25 mg XL Tab PO SCH (08:27)
[2018-04-16] MEDS: Multivitamin With Minerals Tab PO SCH (08:27)
--- NOTE | 2018-04-16 09:18 | CP.PCM.PN ---
Subjective - Date & Time of Evaluation Date of Evaluation: 04/16/18 Time of Evaluation: 09:13 - Subjective Subjective: Podiatry progress notes for attending Esthela Marley 52 year old female patient seen and evaluated with attending Esthela Marley at the bedside for infected ulcer of the right foot. Patient is sitting in her bed comfortably and in NAD. Patient is AAO X 3. She states that she is today she is not having any pain in the site of the ulcer at her right foot. Patient states that her other foot has a plantar ulcer which is healed and stable now. She denies any pain in the left foot healed ulcer site. Patient states that she is figuring out an address of one of her friends or relatives to receive the antibiotic at. Patient denies any overnight acute events. She denies any F/N/V/ C or SOB overnight. She denies any other pedal complaint at this time. Patient states that she is moving to [place] next Thursday but she will keep F/U with Dr. Proctor for her ulcer issue. Objective - Vital Signs/Intake and Output Vital Signs (last 24 hours): Temp Pulse Resp BP Pulse Ox 98.2 F 75 20 176/79 H 100 04/16/18 08:01 04/16/18 08:27 04/16/18 08:01 04/16/18 08:27 04/16/18 08:01 - Medications Medications: Current Medications Acetaminophen (Tylenol 325mg Tab) 650 mg PO Q6 PRN PRN Reason: Pain, moderate (4-7) Atorvastatin Calcium (Lipitor) 40 mg PO HS [facility] Last Admin: 04/15/18 21:42 Dose: 40 mg Clopidogrel Bisulfate (Plavix) 75 mg PO DAILY [facility] Last Admin: 04/16/18 08:28 Dose: 75 mg Dextrose (Dextrose 50% Inj) 0 ml IV STAT PRN; Protocol PRN Reason: Hypoglycemia Protocol Dextrose (Glutose 15) 0 gm PO ONCE PRN; Protocol PRN Reason: Hypoglycemia Protocol Enalapril Maleate (Vasotec) 5 mg PO DAILY [facility] Last Admin: 04/16/18 08:28 Dose: 5 mg Enoxaparin Sodium (Lovenox) 40 mg SC DAILY [facility] PRN Reason: Protocol Last Admin: 04/14/18 09:08 Dose: 40 mg Ferrous Sulfate (Feosol) 325 mg PO BID [facility] Last Admin: 04/16/18 08:26 Dose: 325 mg Glipizide (Glucotrol) 10 mg PO ACB [facility] Last Admin: 04/16/18 08:26 Dose: 10 mg Glipizide (Glucotrol) 5 mg PO ACD [facility] Last Admin: 04/15/18 16:03 Dose: 5 mg Glucagon (Glucagen Diagnostic Kit) 0 mg IM STAT PRN; Protocol PRN Reason: Hypoglycemia Protocol Hydralazine HCl (Apresoline) 10 mg PO BID [facility] Last Admin: 04/16/18 08:25 Dose: 10 mg Hydrochlorothiazide (Hydrodiuril) 25 mg PO DAILY [facility] Last Admin: 04/15/18 08:44 Dose: 25 mg Meropenem 500 mg/ Sodium (Chloride) 100 mls @ 100 mls/hr IVPB Q8 [facility] PRN Reason: Protocol Last Admin: 04/16/18 08:27 Dose: 100 mls/hr Vancomycin HCl 750 mg/ Sodium (Chloride) 250 mls @ 166.667 mls/hr IVPB Q12 [facility] PRN Reason: Protocol Last Admin: 04/15/18 20:08 Dose: 166.667 mls/hr Insulin Human Lispro (Humalog) 0 units SC ACHS [facility] PRN Reason: Protocol Last Admin: 04/16/18 08:26 Dose: Not Given Lidocaine (Lidoderm) 1 ea TD DAILY [facility] Last Admin: 04/16/18 02:42 Dose: 1 ea Metoprolol Succinate (Toprol Xl) 25 mg PO DAILY [facility] Last Admin: 04/16/18 08:27 Dose: 25 mg Multivitamins/Minerals (Therapeutic-M Tab) 1 tab PO DAILY [facility] Last Admin: 04/16/18 08:27 Dose: 1 tab Senna/Docusate Sodium (Senokot S 50 Mg-8.6 Mg) 1 tab PO HS [facility] Last Admin: 04/15/18 21:42 Dose: 1 tab - Labs Labs: 04/13/18 05:25 04/13/18 05:25 PT 11.5 Seconds (9.8-13.1) 04/14/18 11:49 INR 1.0 (0.9-1.2) 04/14/18 11:49 - Constitutional Appears: Well, Toxic, No Acute Distress - Head Exam Head Exam: ATRAUMATIC, NORMOCEPHALIC - Extremities Exam Additional comments: LE focused physical exam: Vasc: DP/PT pulses palpable 2/4 b/l. Temp gradient warm to cool b/l, CFT < 3 sec to all digits. No pedal edema noted. Derm: 0.2cm x 0.2cm x 1.0 cm ulceration noted to plantar lateral right midfoot; A hyperkeratotic rim present. No probe to bone, No malodor or undermining. Gentian kapil noted to wound periphery from previous applications. No fluctuance noted to wound periphery proximally. No drainage elicited with pressure. No erythema. Healed ulcer on the plantar aspect of the left midfoot surrounded by Gentian kapil applied previously. Neuro: Protective sensation grossly diminished b/l. Gross sensation intact b/l. Ortho: Mild pain on palpation noted to ulceration and Styloid process of the right foot. Charcot neuroarthropathy deformity present with multiple bony prominences to plantar midfoot b/l. Muscle strength 5/5 for all all muscle groups b/l. - Neurological Exam Neurological Exam: Alert, Awake, Oriented x3 - Psychiatric Exam Psychiatric exam: Normal Affect, Normal Mood Assessment and Plan - Assessment and Plan (Free Text) Assessment: 52 year old female patient seen and evaluated at the bedside for infected right foot ulceration and cellulites. Stable healed left foot ulcer Plan: Patient seen and evaluated at the bedside. Discussed plan in details with attending, Dr. Proctor Contacted the 1ry team, ID and case management social worker for discussing the plan of treatment and the arrangement of patient discharge. Chart, Vitals and labs reviewed; Afebrile, No leukocytosis and ESR is 55. Right foot X-ray reviewed: No ST emphysema, charcot arthropathy changes in midfoot. MRI right foot done; Multiple enhancing foci at the 5th met base, Distal 5th met , cuboid and medial talar dome suggestive of osteomyelitis. Right foot wound culture; Final, Enterococcus faecalis. Local wound care - DSD and Silver algenate on the right side and DSD on the left side. Patient is planned to be discharged today. Patient instructed to continue dressing her right foot every day using DSD and silver algenate and to cover the healed ulcer site in the left foot using DSD. As per ID patient will continue IV antibiotics for 6 weeks in the PICC line. Patient instructed to go to the ED in case she has F/N/V/C/SOB, pain, redness, hotness, swelling, malodor or increased drainage in her ulcer site. Patient expressed verbal understanding. Patient will F/U with Dr. Proctor in his office after discharge.
[2018-04-16] MEDS: Enoxaparin 40 mg Syringe SC SCH (09:41)
--- NOTE | 2018-04-16 14:02 | CP.PCM.PN ---
Subjective - Date & Time of Evaluation Date of Evaluation: 04/16/18 Time of Evaluation: 09:00 - Subjective Subjective: MRI likely OM wants to leave for [place] Objective - Vital Signs/Intake and Output Vital Signs (last 24 hours): Temp Pulse Resp BP Pulse Ox 98.2 F 75 20 176/79 H 100 04/16/18 08:01 04/16/18 08:27 04/16/18 08:01 04/16/18 08:27 04/16/18 08:01 - Medications Medications: Current Medications Acetaminophen (Tylenol 325mg Tab) 650 mg PO Q6 PRN PRN Reason: Pain, moderate (4-7) Atorvastatin Calcium (Lipitor) 40 mg PO HS [facility] Last Admin: 04/15/18 21:42 Dose: 40 mg Clopidogrel Bisulfate (Plavix) 75 mg PO DAILY [facility] Last Admin: 04/16/18 08:28 Dose: 75 mg Dextrose (Dextrose 50% Inj) 0 ml IV STAT PRN; Protocol PRN Reason: Hypoglycemia Protocol Dextrose (Glutose 15) 0 gm PO ONCE PRN; Protocol PRN Reason: Hypoglycemia Protocol Enalapril Maleate (Vasotec) 5 mg PO DAILY [facility] Last Admin: 04/16/18 08:28 Dose: 5 mg Enoxaparin Sodium (Lovenox) 40 mg SC DAILY [facility] PRN Reason: Protocol Last Admin: 04/16/18 09:41 Dose: 40 mg Ferrous Sulfate (Feosol) 325 mg PO BID [facility] Last Admin: 04/16/18 08:26 Dose: 325 mg Glipizide (Glucotrol) 10 mg PO ACB [facility] Last Admin: 04/16/18 08:26 Dose: 10 mg Glipizide (Glucotrol) 5 mg PO ACD [facility] Last Admin: 04/15/18 16:03 Dose: 5 mg Glucagon (Glucagen Diagnostic Kit) 0 mg IM STAT PRN; Protocol PRN Reason: Hypoglycemia Protocol Hydralazine HCl (Apresoline) 10 mg PO BID [facility] Last Admin: 04/16/18 08:25 Dose: 10 mg Hydrochlorothiazide (Hydrodiuril) 25 mg PO DAILY [facility] Last Admin: 04/16/18 10:00 Dose: 25 mg Meropenem 500 mg/ Sodium (Chloride) 100 mls @ 100 mls/hr IVPB Q8 [facility] PRN Reason: Protocol Last Admin: 04/16/18 08:27 Dose: 100 mls/hr Vancomycin HCl 750 mg/ Sodium (Chloride) 250 mls @ 166.667 mls/hr IVPB Q12 [facility] PRN Reason: Protocol Last Admin: 04/16/18 09:41 Dose: 166.667 mls/hr Insulin Human Lispro (Humalog) 0 units SC ACHS [facility] PRN Reason: Protocol Last Admin: 04/16/18 11:08 Dose: Not Given Lidocaine (Lidoderm) 1 ea TD DAILY [facility] Last Admin: 04/16/18 02:42 Dose: 1 ea Metoprolol Succinate (Toprol Xl) 25 mg PO DAILY [facility] Last Admin: 04/16/18 08:27 Dose: 25 mg Multivitamins/Minerals (Therapeutic-M Tab) 1 tab PO DAILY [facility] Last Admin: 04/16/18 08:27 Dose: 1 tab Senna/Docusate Sodium (Senokot S 50 Mg-8.6 Mg) 1 tab PO HS [facility] Last Admin: 04/15/18 21:42 Dose: 1 tab - Labs Labs: 04/13/18 05:25 04/13/18 05:25 PT 11.5 Seconds (9.8-13.1) 04/14/18 11:49 INR 1.0 (0.9-1.2) 04/14/18 11:49 - Constitutional Appears: Non-toxic, Chronically Ill - Head Exam Head Exam: NORMOCEPHALIC - Eye Exam Eye Exam: PERRL - ENT Exam ENT Exam: Mucous Membranes Dry - Neck Exam Neck Exam: absent: Lymphadenopathy - Respiratory Exam Respiratory Exam: Decreased Breath Sounds - Cardiovascular Exam Cardiovascular Exam: REGULAR RHYTHM - GI/Abdominal Exam GI & Abdominal Exam: Distended - Rectal Exam Rectal Exam: Deferred Assessment and Plan (1) Diabetic foot ulcer Status: Acute (2) Chronic wound of extremity Status: Acute (3) Foot ulcer Status: Acute - Assessment and Plan (Free Text) Assessment: follow up with Podiatry cont antibiotics for 6 weeks
--- NOTE | 2018-04-16 14:13 | CP.PCM.DIS ---
<Mitch Cole - Last Filed: 04/16/18 15:06> Provider - Provider Date of Admission: 04/11/18 15:00 Attending physician: Sheila Peraza MD Time Spent in preparation of Discharge (in minutes): 15 Hospital Course - Lab Results Lab Results: Micro Results 04/11/18 17:02 Blood-Venous Blood Culture - Preliminary NO GROWTH AFTER 4 DAYS 04/11/18 17:02 Foot - Right Gram Stain - Final 04/11/18 17:02 Foot - Right Wound Culture - Final Enterococcus Faecalis Most Recent Lab Values WBC 6.2 K/uL (4.8-10.8) 04/13/18 05:25 RBC 3.45 Mil/uL (3.80-5.20) L 04/13/18 05:25 Hgb 9.2 g/dL (12.0-16.0) L 04/13/18 05:25 Hct 28.4 % (34.0-47.0) L 04/13/18 05:25 MCV 82.4 fl (81.0-99.0) 04/13/18 05:25 MCH 26.7 pg (27.0-31.0) L 04/13/18 05:25 MCHC 32.4 g/dL (33.0-37.0) L 04/13/18 05:25 RDW 15.3 % (11.5-14.5) H 04/13/18 05:25 Plt Count 176 K/uL (130-400) 04/13/18 05:25 MPV 10.3 fl (7.2-11.7) 04/13/18 05:25 Neut % (Auto) 48.9 % (50.0-75.0) L 04/13/18 05:25 Lymph % (Auto) 40.4 % (20.0-40.0) H 04/13/18 05:25 [place] % (Auto) 7.7 % (0.0-10.0) 04/13/18 05:25 Eos % (Auto) 2.1 % (0.0-4.0) 04/13/18 05:25 Baso % (Auto) 0.9 % (0.0-2.0) 04/13/18 05:25 Neut # (Auto) 3.0 K/uL (1.8-7.0) 04/13/18 05:25 Lymph # (Auto) 2.5 K/uL (1.0-4.3) 04/13/18 05:25 [place] # (Auto) 0.5 K/uL (0.0-0.8) 04/13/18 05:25 Eos # (Auto) 0.1 K/uL (0.0-0.7) 04/13/18 05:25 Baso # (Auto) 0.1 K/uL (0.0-0.2) 04/13/18 05:25 ESR 55 mm/hr (0-30) H 04/11/18 12:55 PT 11.5 Seconds (9.8-13.1) 04/14/18 11:49 INR 1.0 (0.9-1.2) 04/14/18 11:49 Sodium 141 mmol/l (132-148) 04/13/18 05:25 Potassium 4.5 MMOL/L (3.6-5.0) 04/13/18 05:25 Chloride 110 mmol/L (98-107) H 04/13/18 05:25 Carbon Dioxide 20 mmol/L (22-30) L 04/13/18 05:25 Anion Gap 16 (10-20) 04/13/18 05:25 BUN 22 mg/dl (7-17) H 04/13/18 05:25 Creatinine 1.1 mg/dl (0.7-1.2) 04/13/18 05:25 Est GFR ( Amer) > 60 04/13/18 05:25 Est GFR (Non-Af Amer) 52 04/13/18 05:25 POC Glucose (mg/dL) 101 mg/dL (65-110) 04/16/18 10:53 Random Glucose 78 mg/dL (65-105) 04/13/18 05:25 Hemoglobin A1c 7.2 % (4.2-6.5) H 04/11/18 16:19 Calcium 8.5 mg/dL (8.4-10.2) 04/13/18 05:25 Iron 26 ug/dL (37-170) L 04/13/18 11:08 TIBC 240 ug/dL (250-450) L 04/13/18 11:08 % Saturation 11 % (20-55) L 04/13/18 11:08 Ferritin 257.0 ng/Ml (11.1-264.0) 04/14/18 05:35 Total Bilirubin 0.4 mg/dl (0.2-1.3) 04/12/18 05:00 AST 18 U/L (14-36) 04/12/18 05:00 ALT 22 U/L (9-52) 04/12/18 05:00 Alkaline Phosphatase 97 U/L (38-126) 04/12/18 05:00 Total Protein 6.6 G/DL (6.3-8.2) 04/12/18 05:00 Albumin 3.3 g/dL (3.5-5.0) L 04/12/18 05:00 Globulin 3.3 gm/dL (2.2-3.9) 04/12/18 05:00 Albumin/Globulin Ratio 1.0 (1.0-2.1) 04/12/18 05:00 Urine Color Straw (YELLOW) 04/15/18 11:20 Urine Clarity Clear (Clear) 04/15/18 11:20 Urine pH 6.0 (5.0-8.0) 04/15/18 11:20 Ur Specific [place] 1.008 (1.003-1.030) 04/15/18 11:20 Urine Protein Negative mg/dL (NEGATIVE) 04/15/18 11:20 Urine Glucose (UA) Neg mg/dL (Normal) 04/15/18 11:20 Urine Ketones Negative mg/dL (NEGATIVE) 04/15/18 11:20 Urine Blood Negative (NEGATIVE) 04/15/18 11:20 Urine Nitrate Negative (NEGATIVE) 04/15/18 11:20 Urine Bilirubin Negative (NEGATIVE) 04/15/18 11:20 Urine Urobilinogen 0.2-1.0 mg/dL (0.2-1.0) 04/15/18 11:20 Ur Leukocyte Esterase Neg [place]/uL (Negative) 04/15/18 11:20 Urine RBC (Auto) < 1 /hpf (0-3) 04/15/18 11:20 Ur Squamous Epith Cells 1 /hpf (0-5) 04/15/18 11:20 Stool Occult Blood Negative (NEGATIVE) 04/14/18 11:20 Vancomycin Trough 10.5 ug/mL (5.0-10.0) H 04/14/18 09:00 - Hospital Course Hospital Course: 52 yo f with pmh of HTN, DM, PAD, Iron deficiency anemia, hypercholesterolemia, charcot arthropathy, presented to ED due to pain in right food. Pt was admitted to tx cellulites/ possible osteomyelitis. Podiatry, and ID were on the case. Xray, MRI were done, osteomyelitis could not be ruled out. Pt got managed for osteomyelitis, and treated with Vanco and Meropenem. Pt is improving. Pt suppose to be discharged with PICC-line for 6 week Abx, there was Insurance and treatment plan discrepancies due to pt moving out of state ( [place]), treatment plan changed to PO Augmentin abx for meantime. Pt have to follow up with doctor in [place] to receive optimal management. Pt will need IV abx to fully treat the infection. Pt was thoroughly educated by medical team, ID , and podiatry of how important to follow up with a doctor as soon as possible to get optimal management for her foot. Podiatry, ID and medical team approve pt is medically stable to be discharged home. Alternate treatment plan was given due to Insurance discrepancies. Pt Need to see her PCP To continue optimize treatment. Medication Augmentin 875-125 mg Q12 #42 tab 21 days. Discharge Exam - Head Exam Head Exam: ATRAUMATIC, NORMAL INSPECTION, NORMOCEPHALIC - Eye Exam Eye Exam: EOMI, Normal appearance, PERRL Pupil Exam: NORMAL ACCOMODATION, PERRL - ENT Exam ENT Exam: Normal Exam - Respiratory Exam Respiratory Exam: Clear to PA & Lateral, NORMAL BREATHING PATTERN, UNREMARKABLE - Cardiovascular Exam Cardiovascular Exam: REGULAR RHYTHM, +S1, +S2 - GI/Abdominal Exam GI & Abdominal Exam: Normal Bowel Sounds, Soft, Unremarkable - Extremities Exam Extremities exam: full ROM Additional comments: Ulcer noted on Right foot plantar area, Improving, no drain at moment. - Neurological Exam Neurological exam: Alert, Normal Gait, Oriented x3 - Psychiatric Exam Psychiatric exam: Normal Affect, Normal Mood - Skin Skin Exam: Dry, Intact, Normal Color, Warm Discharge Plan - Discharge Medications Prescriptions: Amoxicillin/Clavulanate [Augmentin 875 MG-125 MG] 1 tab PO Q12 #42 tab - Follow Up Plan Condition: STABLE Disposition: HOME/ ROUTINE Instructions: Diabetic Foot Ulcer (DC), Peripherally-Inserted Central Catheter (DC), Foot Care for Diabetics, Diabetes and Diet Additional Instructions: follow up with primary MD 1 week Referrals: Shilo Martinez MD [Staff Provider] - Shaji Proctor DPM [Doctor Podiatric Medicine] - <DewayneAngela - Last Filed: 04/17/18 09:06> Provider - Provider Date of Admission: 04/11/18 15:00 Attending physician: Sheila Peraza MD Hospital Course - Lab Results Lab Results: Micro Results 04/11/18 17:02 Blood-Venous Blood Culture - Final NO GROWTH AFTER 5 DAYS 04/11/18 17:02 Blood-Venous Gram Stain - Final TEST NOT PERFORMED 04/11/18 17:02 Foot - Right Gram Stain - Final 04/11/18 17:02 Foot - Right Wound Culture - Final Enterococcus Faecalis Most Recent Lab Values WBC 6.2 K/uL (4.8-10.8) 04/13/18 05:25 RBC 3.45 Mil/uL (3.80-5.20) L 04/13/18 05:25 Hgb 9.2 g/dL (12.0-16.0) L 04/13/18 05:25 Hct 28.4 % (34.0-47.0) L 04/13/18 05:25 MCV 82.4 fl (81.0-99.0) 04/13/18 05:25 MCH 26.7 pg (27.0-31.0) L 04/13/18 05:25 MCHC 32.4 g/dL (33.0-37.0) L 04/13/18 05:25 RDW 15.3 % (11.5-14.5) H 04/13/18 05:25 Plt Count 176 K/uL (130-400) 04/13/18 05:25 MPV 10.3 fl (7.2-11.7) 04/13/18 05:25 Neut % (Auto) 48.9 % (50.0-75.0) L 04/13/18 05:25 Lymph % (Auto) 40.4 % (20.0-40.0) H 04/13/18 05:25 [place] % (Auto) 7.7 % (0.0-10.0) 04/13/18 05:25 Eos % (Auto) 2.1 % (0.0-4.0) 04/13/18 05:25 Baso % (Auto) 0.9 % (0.0-2.0) 04/13/18 05:25 Neut # (Auto) 3.0 K/uL (1.8-7.0) 04/13/18 05:25 Lymph # (Auto) 2.5 K/uL (1.0-4.3) 04/13/18 05:25 [place] # (Auto) 0.5 K/uL (0.0-0.8) 04/13/18 05:25 Eos # (Auto) 0.1 K/uL (0.0-0.7) 04/13/18 05:25 Baso # (Auto) 0.1 K/uL (0.0-0.2) 04/13/18 05:25 ESR 55 mm/hr (0-30) H 04/11/18 12:55 PT 11.5 Seconds (9.8-13.1) 04/14/18 11:49 INR 1.0 (0.9-1.2) 04/14/18 11:49 Sodium 141 mmol/l (132-148) 04/13/18 05:25 Potassium 4.5 MMOL/L (3.6-5.0) 04/13/18 05:25 Chloride 110 mmol/L (98-107) H 04/13/18 05:25 Carbon Dioxide 20 mmol/L (22-30) L 04/13/18 05:25 Anion Gap 16 (10-20) 04/13/18 05:25 BUN 22 mg/dl (7-17) H 04/13/18 05:25 Creatinine 1.1 mg/dl (0.7-1.2) 04/13/18 05:25 Est GFR ( Amer) > 60 04/13/18 05:25 Est GFR (Non-Af Amer) 52 04/13/18 05:25 POC Glucose (mg/dL) 189 mg/dL (65-110) H 04/16/18 15:48 Random Glucose 78 mg/dL (65-105) 04/13/18 05:25 Hemoglobin A1c 7.2 % (4.2-6.5) H 04/11/18 16:19 Calcium 8.5 mg/dL (8.4-10.2) 04/13/18 05:25 Iron 26 ug/dL (37-170) L 04/13/18 11:08 TIBC 240 ug/dL (250-450) L 04/13/18 11:08 % Saturation 11 % (20-55) L 04/13/18 11:08 Ferritin 257.0 ng/Ml (11.1-264.0) 04/14/18 05:35 Total Bilirubin 0.4 mg/dl (0.2-1.3) 04/12/18 05:00 AST 18 U/L (14-36) 04/12/18 05:00 ALT 22 U/L (9-52) 04/12/18 05:00 Alkaline Phosphatase 97 U/L (38-126) 04/12/18 05:00 Total Protein 6.6 G/DL (6.3-8.2) 04/12/18 05:00 Albumin 3.3 g/dL (3.5-5.0) L 04/12/18 05:00 Globulin 3.3 gm/dL (2.2-3.9) 04/12/18 05:00 Albumin/Globulin Ratio 1.0 (1.0-2.1) 04/12/18 05:00 Urine Color Straw (YELLOW) 04/15/18 11:20 Urine Clarity Clear (Clear) 04/15/18 11:20 Urine pH 6.0 (5.0-8.0) 04/15/18 11:20 Ur Specific [place] 1.008 (1.003-1.030) 04/15/18 11:20 Urine Protein Negative mg/dL (NEGATIVE) 04/15/18 11:20 Urine Glucose (UA) Neg mg/dL (Normal) 04/15/18 11:20 Urine Ketones Negative mg/dL (NEGATIVE) 04/15/18 11:20 Urine Blood Negative (NEGATIVE) 04/15/18 11:20 Urine Nitrate Negative (NEGATIVE) 04/15/18 11:20 Urine Bilirubin Negative (NEGATIVE) 04/15/18 11:20 Urine Urobilinogen 0.2-1.0 mg/dL (0.2-1.0) 04/15/18 11:20 Ur Leukocyte Esterase Neg [place]/uL (Negative) 04/15/18 11:20 Urine RBC (Auto) < 1 /hpf (0-3) 04/15/18 11:20 Ur Squamous Epith Cells 1 /hpf (0-5) 04/15/18 11:20 Stool Occult Blood Negative (NEGATIVE) 04/14/18 11:20 Vancomycin Trough 10.5 ug/mL (5.0-10.0) H 04/14/18 09:00
[2018-04-16 15:53] VITALS: BP 151/75; PULSE 59; RESP 19; TEMP 97.6
== END 2018-04-16 18:15 | disposition home or self-care (01) | DRG 638 ==
LOC: H.ER 11:42 → H.ERHOLD 15:00 → H.MEDSURG1 17:14
PROVIDERS: ADMIT Family Medicine; ATTEND Family Medicine
PROC: 02HV33Z Insertion of Infusion Device into Superior Vena Cava, Percutaneous Approach (ICD-10-PCS; principal; 2018-04-15)
PROC: B518ZZA Fluoroscopy of Superior Vena Cava, Guidance (ICD-10-PCS; 2018-04-15)
PROC: B548ZZA Ultrasonography of Superior Vena Cava, Guidance (ICD-10-PCS; 2018-04-15)
DX: E11.621 Type 2 diabetes mellitus with foot ulcer (principal); L03.115 Cellulitis of right lower limb; M86.9 Osteomyelitis, unspecified; E11.69 Type 2 diabetes mellitus with other specified complication; E78.00 Pure hypercholesterolemia, unspecified; I10 Essential (primary) hypertension; K59.00 Constipation, unspecified; L97.519 Non-pressure chronic ulcer of other part of right foot with unspecified severity; S90.821A Blister (nonthermal), right foot, initial encounter; T36.8X5A Adverse effect of other systemic antibiotics, initial encounter; Z79.02 Long term (current) use of antithrombotics/antiplatelets; Z80.42 Family history of malignant neoplasm of prostate; Z80.7 Family history of other malignant neoplasms of lymphoid, hematopoietic and related tissues; Z82.49 Family history of ischemic heart disease and other diseases of the circulatory system; Z83.3 Family history of diabetes mellitus; Z86.718 Personal history of other venous thrombosis and embolism; Z87.891 Personal history of nicotine dependence; Z90.710 Acquired absence of both cervix and uterus; Z98.84 Bariatric surgery status; Z98.891 History of uterine scar from previous surgery; D50.9 Iron deficiency anemia, unspecified; E11.622 Type 2 diabetes mellitus with other skin ulcer; Z79.84 Long term (current) use of oral hypoglycemic drugs; Z79.899 Other long term (current) drug therapy; E11.51 Type 2 diabetes mellitus with diabetic peripheral angiopathy without gangrene; E11.610 Type 2 diabetes mellitus with diabetic neuropathic arthropathy; Z91.013 Allergy to seafood